=== PATIENT | female | born 1940 | race African-American/Black ===

== ENCOUNTER 2018-01-01 14:16 | Outpatient (CLI) | payer MEDICARE ==
[2017-12-31 09:12] LABS: Bilirubin Negative (Negative); Blood, Urine Negative (Negative); Clarity CLEAR (Clear); Glucose, Urine (Dipstick) Negative (Negative); Leukocyte Negative (Negative); Nitrite Negative (Negative); Protein, Urine (Dipstick) 30 mg/dL (Neg-Trace); Specific Gravity, Urine 1.009 (1.002-1.036); Urobilinogen 0.2 mg/dL (0.2-1.0)
[2017-12-31 09:13] LABS: Bacteria/HPF Rare-Few HPF (None Seen); Hyaline Casts/LPF 0-3 HYALINE CAST LPF (0-3 Hyaline); Pathc Cast-AUWi Flag 0.13 (0-2.49); RBC/HPF 0-3 HPF (0-3); Squamous Epithelial 0-3 HPF (0-3); WBC/HPF 0-3 HPF (0-3)
[2017-12-31 09:20] LABS: Anion Gap 14 mmol/L (10-20); BUN (Urea Nitrogen) 19 mg/dL (9.8-20.1); Calc. Creatinine Clearance 0 mL/min (70-130); Calcium 9.5 mg/dL (7.8-10.44); Carbon Dioxide 25 mmol/L (23-31); Chloride 104 mmol/L (98-107); Estimated GFR-MDRD 38; Glucose 163 mg/dL (83-110); Potassium 4.5 mmol/L (3.5-5.1); Sodium 138 mmol/L (136-145)
== END 2018-01-01 14:17 | disposition home or self-care (01) ==
LOC: BICULT 14:16
PROVIDERS: ATTEND Urology
DX: N18.9 Chronic kidney disease, unspecified (principal); N28.1 Cyst of kidney, acquired; R35.0 Frequency of micturition
CPT/HCPCS: 36415; 76770; 80048; 81001; 87086

== ENCOUNTER 2018-02-05 07:00 | Outpatient (CLI) | payer MEDICARE ==
--- NOTE | 2018-02-05 13:37 | NM ---
RADIONUCLIDE GASTRIC EMPTYING SCAN: HISTORY: Unspecified abdominal pain. Anorexia. RADIOPHARMACEUTICAL: Technetium 99m sulfur colloid 2.1 millicuries administered orally in scrambled eggs. FINDINGS: There is 69% emptying of the ingested gastric contents at 1 hour, 84% emptying at 2 hours, 87% emptyi ng at 3 hours, and 92% emptying at 4 hours. POS: [facility]
== END 2018-02-05 07:01 | disposition home or self-care (01) ==
LOC: NM 07:00
PROVIDERS: ATTEND Internal Medicine Gastroenterology
DX: R10.9 Unspecified abdominal pain (principal); K59.09 Other constipation; R63.0 Anorexia; R63.4 Abnormal weight loss; I10 Essential (primary) hypertension; E11.9 Type 2 diabetes mellitus without complications
CPT/HCPCS: 78264; A9541

== ENCOUNTER 2018-07-04 14:17 | Outpatient (CLI) | payer MEDICARE | END 2018-07-04 14:18 | disposition home or self-care (01) | LOC: BICMAMMO 14:17 | PROVIDERS: ATTEND Family Medicine | DX: Z12.31 Encounter for screening mammogram for malignant neoplasm of breast (principal) | CPT/HCPCS: 77063; 77067 ==

== ENCOUNTER 2018-09-26 08:24 | Outpatient (CLI) | payer MEDICARE ==
--- NOTE | 2018-09-26 10:06 | ULT ---
ULTRASOUND ABDOMEN: HISTORY: A 78-year-old female with abdominal pain. FINDINGS: The liver demonstrates homogeneous echotexture without focal mass or intrahepatic ductal dilatation. The spleen is normal. The patient is post cholecystectomy. The common duct measures 3 mm in diamet er. The pancreas is not well visualized. The visualized portions of the aorta and IVC are normal. No hydronephrosis is seen on either side. There is a 1.4 cm cyst in the right kidney. There is a 7 mm echogenic focus in the left kidney corresponding to a hemorrhagic cyst seen on the CT scan of 01/10. No free fluid is seen. IMPRESSION: Renal cysts. POS: [facility]
== END 2018-09-26 08:25 | disposition home or self-care (01) ==
LOC: BICULT 08:24
PROVIDERS: ATTEND Internal Medicine Gastroenterology
DX: R10.9 Unspecified abdominal pain (principal); E11.9 Type 2 diabetes mellitus without complications; N20.0 Calculus of kidney
CPT/HCPCS: 76700

== ENCOUNTER 2019-01-01 10:58 | Outpatient (CLI) | payer MEDICARE ==
--- NOTE | 2019-01-01 13:32 | ULT ---
RENAL ULTRASOUND: 01/01/2019 HISTORY: Chronic kidney disease. Renal cyst disease. COMPARISON: 01/01/2018 TECHNIQUE: Multiplanar lacy-scale sonographic imaging of the kidneys and urinary bladder is obtained. FINDINGS: The right kidney measures 9.1 x 4.4 x 4.4 cm, and the left kidney measures 8.7 x 4.6 x 4.4 cm. There is a small cyst in the upper pole of the right kidney, measuring 1.4 x 1.2 x 1.3 cm. No hydron ephrosis or solid renal mass is noted. Secondary to body habitus, detailed assessment of the left kidney is limited. No hydronephrosis or o bvious mass. The urinary bladder is grossly unremarkable. IMPRESSION: Cyst noted in the upper pole of the right kidney. Evaluation of the left kidney is limited secondary to body habitus and bowel gas. No hydronephrosis. POS: [facility]
== END 2019-01-01 10:59 | disposition home or self-care (01) ==
LOC: BICULT 10:58
PROVIDERS: ATTEND Urology
DX: N18.9 Chronic kidney disease, unspecified (principal); N28.1 Cyst of kidney, acquired
CPT/HCPCS: 76770

== ENCOUNTER 2019-01-19 19:22 | Emergency (ER) | payer MEDICARE ==
[2019-01-19 20:38] LABS: #Basophils 0.1 thou/uL (0.0-0.2); #Eosinphils 0.2 thou/uL (0.0-0.7); #Lymphocytes 2.4 thou/uL (1.20-3.40); #Monocytes 0.5 thou/uL (0.11-0.59); #Neutrophils 3.9 thou/uL (1.40-6.50); %Basophils 0.8 % (0.0-1.0); %Eosinophils 3.1 % (0.0-10.0); %Lymphocytes 33.7 % (21.0-51.0); %Monocytes 7.6 % (0.0-10.0); %Neutrophils 54.8 % (42.0-75.0); Hemoglobin 10.9 g/dL (12.0-16.0); Mean Corpuscular HGB CONC 32.1 g/dL (32.0-36.0); Mean Corpuscular Volume 87.2 fL (78.0-98.0); Mean Platelet Volume 6.9 fL (7.4-10.4); Platelet Count 277 thou/uL (130-400); RBC Distribution Width 12.3 % (11.5-14.5); White Blood Cell (WBC) Count 7.1 thou/uL (4.8-10.8)
[2019-01-19 21:06] LABS: ALT (SGPT) 13 U/L (8-55); AST (SGOT) 18 U/L (5-34); Albumin 3.6 g/dL (3.4-4.8); Alkaline Phosphatase 98 U/L (40-150); Anion Gap 13 mmol/L (10-20); BUN (Urea Nitrogen) 19 mg/dL (9.8-20.1); Bilirubin, Total 0.6 mg/dL (0.2-1.2); Calc. Creatinine Clearance 0 mL/min (70-130); Calcium 9.9 mg/dL (7.8-10.44); Carbon Dioxide 30 mmol/L (23-31); Chloride 100 mmol/L (98-107); Estimated GFR-MDRD 27; Globulin 3.8 g/dL (2.4-3.5); Glucose 138 mg/dL (83-110); Lipase 9 U/L (8-78); Potassium 4.1 mmol/L (3.5-5.1); Protein, Total 7.4 g/dL (6.0-8.3); Sodium 139 mmol/L (136-145)
[2019-01-19 21:07] LABS: Bilirubin Negative (Negative); Blood, Urine Negative (Negative); Clarity CLEAR (Clear); Glucose, Urine (Dipstick) Negative (Negative); Leukocyte Negative (Negative); Nitrite Negative (Negative); Protein, Urine (Dipstick) 100 mg/dL (Neg-Trace); Specific Gravity, Urine 1.006 (1.002-1.036); Urobilinogen 0.2 mg/dL (0.2-1.0)
[2019-01-19 21:08] LABS: Bacteria/HPF None Seen HPF (None Seen); Hyaline Casts/LPF 0-3 HYALINE CAST LPF (0-3 Hyaline); Pathc Cast-AUWi Flag 0.13 (0-2.49); Squamous Epithelial 0-3 HPF (0-3)
--- NOTE | 2019-01-19 21:17 | RAD ---
PORTABLE CHEST ONE VIEW: Date: 01-19-18 Time: 8:48 p.m. History: Abdominal pain FINDINGS: Comparison made with exam of 10-22-12. The heart size is enlarged. The aorta is tortuous. There is continued elevation of the right hemidiap hragm. The lungs are well expanded without focal areas of consolidation, pneumothoraces, grabiel pulmon channing edema, or pleural effusions. There are degenerative changes in the spine. IMPRESSION: No acute process. POS: [facility]
[2019-01-19] MEDS ORDERED: Metoclopramide HCl 10 MG/2 ML VIAL ONE (22:57)
--- NOTE | 2019-01-19 23:06 | CT ---
CT ABDOMEN AND PELVIS WITHOUT CONTRAST: History: Left sided abdominal pain. FINDINGS: Comparison made with exam of 01-10-17. Absence of oral and IV contrast limits the examination for evaluation of solid organs and bowel. There are changes of cholecystectomy and hysterectomy. No free air or free fluid is noted in the abdo men or pelvis. No calculus is seen in the kidneys, ureters, or urinary bladder. No hydroureteronephrosis on either s jose. Hyperdense lesions in the kidneys are redemonstrated. There are vascular calcifications without evidence of aneurysmal dilatation of the abdominal aorta. T here are degenerative changes of the spine. There is colonic diverticulosis. IMPRESSION: 1. No CT evidence of urinary tract calculi or obstruction. 2. Stable hyperdense renal lesions. 3. Colonic diverticulosis. POS: [facility]
[2019-01-19] MEDS ORDERED: Magnesium Citrate 300 ML BOT ONE (23:28)
== END 2019-01-19 23:36 | disposition home or self-care (01) ==
LOC: ERS 19:22
DX: K59.00 Constipation, unspecified (principal); E11.43 Type 2 diabetes mellitus with diabetic autonomic (poly)neuropathy; K31.84 Gastroparesis; I10 Essential (primary) hypertension; Z86.73 Personal history of transient ischemic attack (TIA), and cerebral infarction without residual deficits
CPT/HCPCS: 36415; 71045; 74176; 80053; 81003; 81015; 83690; 85025; 93005; 94760; 96361; 96374; J2765

== ENCOUNTER 2019-02-05 09:58 | Observation (INO) | payer MEDICARE ==
--- NOTE | 2019-02-05 11:10 | CT ---
CT Brain WO Con: 02/05/2019 10:27 AM CLINICAL HISTORY: Stroke alert; left lower extremity weakness, slurred speech and mental fog. IMAGING TECHNIQUE: Multiple CT images were obtained of the brain without IV contrast. COMPARISON: CT of the brain dated July 31, 2016 and MR the brain dated August 01, 2016. FINDINGS: Extra axial spaces: Normal in size and morphology for the patient's age. Hemorrhage: None. Ventricular system: Normal in size and morphology for the patient's age. Basal cisterns: Normal. Cerebral parenchyma: Stable moderate chronic small vessel white matter ischemic change. Midline shift: None. Cerebellum: Normal. Brainstem: Normal. OTHER: Calvarium: Normal. Vascular system: Normal. Visualized Paranasal sinuses: Clear. Visualized Orbits: Normal. Visualized upper cervical spine: Normal. Sella and skull base: Normal. IMPRESSION: 1. No acute intracranial abnormality. Findings called to Dr. Brewer at 11:05 AM on February 05, 2019. 2. Stable moderate chronic small vessel white matter ischemic change
[2019-02-05] MEDS ORDERED: Aspirin 325 MG TAB ONE (11:25)
[2019-02-05 11:30] LABS: #Eosinphils 0.2 thou/uL (0.0-0.7); #Lymphocytes 1.8 thou/uL (1.20-3.40); #Monocytes 0.3 thou/uL (0.11-0.59); #Neutrophils 6.1 thou/uL (1.40-6.50); %Basophils 0.4 % (0.0-1.0); %Eosinophils 1.8 % (0.0-10.0); %Lymphocytes 21.7 % (21.0-51.0); %Monocytes 3.5 % (0.0-10.0); %Neutrophils 72.6 % (42.0-75.0); Hemoglobin 14.5 g/dL (12.0-16.0); Mean Corpuscular HGB CONC 32.3 g/dL (32.0-36.0); Mean Corpuscular Hemoglobin 27.8 pg (27.0-31.0); Mean Corpuscular Volume 85.9 fL (78.0-98.0); Mean Platelet Volume 6.7 fL (7.4-10.4); Platelet Count 375 thou/uL (130-400); RBC Distribution Width 12.2 % (11.5-14.5); Red Blood Cell (RBC) Count 5.21 mill/uL (4.20-5.40); White Blood Cell (WBC) Count 8.3 thou/uL (4.8-10.8)
[2019-02-05 11:51] LABS: ALT (SGPT) 14 U/L (8-55); AST (SGOT) 22 U/L (5-34); Albumin 4.6 g/dL (3.4-4.8); Alkaline Phosphatase 119 U/L (40-150); Anion Gap 19 mmol/L (10-20); BUN (Urea Nitrogen) 18 mg/dL (9.8-20.1); Bilirubin, Total 0.7 mg/dL (0.2-1.2); CK (CPK) 65 U/L (29-168); Calc. Creatinine Clearance 0 mL/min (70-130); Calcium 11.4 mg/dL (7.8-10.44); Carbon Dioxide 23 mmol/L (23-31); Chloride 100 mmol/L (98-107); Estimated GFR-MDRD 27; Globulin 5.3 g/dL (2.4-3.5); Glucose 155 mg/dL (83-110); Potassium 4.3 mmol/L (3.5-5.1); Protein, Total 9.9 g/dL (6.0-8.3); Sodium 138 mmol/L (136-145)
[2019-02-05 12:21] LABS: Bilirubin Negative (Negative); Blood, Urine Small (Negative); Clarity CLOUDY (Clear); Glucose, Urine (Dipstick) Negative (Negative); Leukocyte Small (Negative); Nitrite Negative (Negative); Protein, Urine (Dipstick) 300 mg/dL (Neg-Trace); Specific Gravity, Urine 1.006 (1.002-1.036); Urobilinogen 0.2 mg/dL (0.2-1.0); pH, Urine 6.5 (5.0-9.0)
[2019-02-05 12:24] LABS: Bacteria/HPF None Seen HPF (None Seen); Hyaline Casts/LPF 0-3 HYALINE CAST LPF (0-3 Hyaline); Pathc Cast-AUWi Flag 0.13 (0-2.49); Squamous Epithelial 0-3 HPF (0-3); WBC/HPF 21-50 HPF (0-3)
[2019-02-05] MEDS ORDERED: Acetaminophen 500 MG TAB ONE (12:48)
[2019-02-05 13:56] VITALS: BMI 24.6
[2019-02-05] MEDS ORDERED: HYDROcodone/Acetaminophen 5/325 mg Tablet PO PRN ×2 (17:50)
[2019-02-05] MEDS ORDERED: Acetaminophen 325 MG TAB PO PRN (17:50)
[2019-02-05] MEDS ORDERED: Senokot S 8.6-50 MG TAB PO PRN (17:50)
[2019-02-05] MEDS ORDERED: Metoclopramide HCl 10 MG TAB PO PRN (17:53)
[2019-02-05] MEDS ORDERED: cloNIDine 0.2 MG TAB PO PRN (17:53)
[2019-02-05] MEDS ORDERED: Cyclobenzaprine 10 MG TAB PO PRN (17:53)
[2019-02-05] MEDS ORDERED: Dextrose 5% in Water 1,000 ML IV PRN (17:54)
[2019-02-05] MEDS ORDERED: Dextrose 50% Abboject 50 ML SYRINGE SLOW IVP PRN (17:54)
[2019-02-05] MEDS ORDERED: HumaLOG 300 UNITS/3 ML VIAL SC PRN (17:54)
[2019-02-05] MEDS ORDERED: Melatonin 3 MG TAB PO PRN (17:55)
[2019-02-05] MEDS: Famotidine 20 MG TAB PO SCH (20:43)
[2019-02-05] MEDS: Carvedilol 3.125 MG TAB PO SCH (20:43)
--- NOTE | 2019-02-06 01:55 | HP ---
PRIMARY CARE PHYSICIAN: Dr. Vigil. CHIEF COMPLAINT: Reports left leg weakness, some dysarthria. Reports that she has feeling of some slurred speech and mental fog since 1800 yesterday. Per niece, the patient does report long-standing history of some gastroparesis. Reports that is her current concern besides left-sided weakness, did have a stroke in 2016. Reports that she did have some left-sided weakness at that point, but it has improved and then got worse again yesterday. Reports that the slurred speech and dysarthria are new. Head CT was negative. The patient was subsequently admitted to the stroke unit for further management. PAST MEDICAL HISTORY: Cardiomegaly, diabetes type 2, hypertension, previous history of a CVA in 2016, left-sided weakness at that point, the patient reports it has been improved, also has fibromyalgia, cyst on her left kidney, gastroparesis. PAST SURGICAL HISTORY: Right knee, cholecystectomy, hysterectomy. Previous surgery for intestinal obstruction in 2000. PSYCHIATRIC HISTORY: None. SOCIAL HISTORY: The patient lives with her niece and nephew. Denies any alcohol or drug use. Denies any smoking history. KNOWN ALLERGIES: None. CURRENT MEDICATIONS: Per ER record, 1. Amlodipine 5 mg one p.o. once a day. 2. Aspirin 81 mg once a day. 3. Coreg 6.25 mg twice a day. 4. Catapres 0.1 mg q.12 hours p.r.n. 5. Omeprazole 40 mg once a day. 6. Reglan 5 mg three times a day. 7. Flexeril 10 mg t.i.d. 8. Carafate 1 g three times a day before meals. 9. Atorvastatin 10 mg 2 tabs at bedtime. REVIEW OF SYSTEMS: The patient reports epigastric abdominal pain and discomfort. Reports nausea. Reports focal weakness to left leg. Reports speech changes. All other systems are reviewed and negative unless mentioned in the HPI. PHYSICAL EXAMINATION: VITAL SIGNS: Blood pressure is 175/79, pulse is 86, respirations 18, pO2 sats 99, temp is 98.1. CONSTITUTIONAL: The patient appears nontoxic. She is alert and oriented to person, place, and time. HEENT: Head is atraumatic and normocephalic. Eyes; eyelids are normal to inspection. Pupils are equally round and reactive to light. ENT; mouth exam is normal. Mucous membranes are moist. NECK: Normal range of motion. Trachea is midline. RESPIRATORY/CHEST: Breath sounds are clear. Chest movement is symmetrical. CARDIOVASCULAR: Regular heart rate and rhythm. Heart sounds are normal. ABDOMEN: Nontender. She has some mild epigastric tenderness. Bowel sounds are heard. BACK: Normal range of motion. No CVA tenderness. EXTREMITIES: Upper extremities; decreased sensation to the left upper extremity. Strength is 4/5. Radial pulses are equal bilaterally. Lower extremities; normal inspection. Motor strength is 4/5 on the left and 5/5 on the right. Sensation is decreased on the left. Pedal pulses are equal bilaterally. NEUROLOGIC: The patient is oriented to person, place, and time. Focal motor deficits. Strength in the left upper and lower is 4/5 and on the right upper and lower is 5/5. Decreased sensation to the left upper and lower extremities. She is slow to form words. Decreased sensation to the left face. SKIN: Warm, dry, normal in color. PSYCH: The patient is oriented to person, place, and time. Normal affect. LABORATORY DATA: EKG in the emergency room shows normal sinus rhythm, beats per minute 96, ST segments T-waves are normal. [place] is normal. Does show some left atrial enlargement. PERTINENT LABORATORY DATA: White blood cell count is 8.3, hemoglobin is 14.5, hematocrit is 44.8, and platelet count is 375. Chemistry; sodium is 138, potassium is 4.3, chloride is 100, carbon dioxide is 23, gap is 19, BUN is 18, creatinine is 2.16, estimated GFR is 27, glucose is 155, calcium is 11.4. Liver enzymes are unremarkable. Troponin x1 is undetectable. Urine; positive for protein, blood, small amount of leukocyte esterase, and white blood cells. No bacteria is seen. We will culture. The patient did have a renal ultrasound in December of 2018, which showed a cyst in the upper pole of the right kidney. Evaluation of the left kidney is limited secondary to body habitus and bowel gas. No hydronephrosis. PLAN AND ASSESSMENT: 1. Left-sided weakness, dysarthria, is difficult to assess if left-sided weakness is new or residual from the left-sided residual deficits that she had after her stroke in 2016. However, we will order an MRI of the brain, carotid artery ultrasound, and echocardiogram especially due to her previous history of a cerebrovascular accident. 2. Gastroparesis. We will continue her home medication. Order some Zofran and some Reglan as needed. 3. Chronic kidney disease, appears stable. 4. Diabetes. For now, we will order Accu-Cheks a.c. and at bedtime, mild sliding scale as needed for coverage. 5. Hypertension. We will continue home medications. We will trend. 6. The patient expresses her wishes to be a DNR. Her son, Mu, was at the bedside and reports that he is the surrogate decision maker. 7. Sequential compression device will be added for deep venous thrombosis prophylaxis. Gastrointestinal prophylaxis will also be started. 8. Stroke team will be consulted. PT, OT, Speech, and Case Management. 9. Hospital course will be dependent on clinical findings. Job ID: [id number]
[2019-02-06 06:35] LABS: Albumin 3.1 g/dL (3.4-4.8)
[2019-02-06 06:37] LABS: Glucose 121 mg/dL (83-110)
[2019-02-06 06:38] LABS: Globulin 3.5 g/dL (2.4-3.5)
[2019-02-06 06:40] LABS: Alkaline Phosphatase 81 U/L (40-150)
[2019-02-06 06:42] LABS: BUN (Urea Nitrogen) 19 mg/dL (9.8-20.1)
[2019-02-06 06:43] LABS: ALT (SGPT) 9 U/L (8-55)
[2019-02-06 06:45] LABS: AST (SGOT) 19 U/L (5-34); Anion Gap 17 mmol/L (10-20); Bilirubin, Total 0.3 mg/dL (0.2-1.2); Calc. Creatinine Clearance 26 mL/min (70-130); Calcium 9.2 mg/dL (7.8-10.44); Carbon Dioxide 22 mmol/L (23-31); Cardiac Risk 12.9 (Less than 4.5); Chloride 104 mmol/L (98-107); Cholesterol 180 mg/dl (< 200 Desired); Estimated GFR-MDRD 31; HDL Cholesterol 14 mg/dL (>60 Neg Risk); LDL Cholesterol, Calculated 153 mg/dL; Potassium 4.5 mmol/L (3.5-5.1); Protein, Total 6.6 g/dL (6.0-8.3); Sodium 138 mmol/L (136-145); Triglycerides 64 mg/dL (Less than 150)
[2019-02-06] MEDS ORDERED: Sucralfate 1 GM TAB PO PRN (07:30)
[2019-02-06] MEDS ORDERED: LINACLOTIDE 290 MCG PO SCH (07:30)
--- NOTE | 2019-02-06 07:46 | ULT ---
BILATERAL CAROTID DUPLEX ULTRASOUND: HISTORY: Left-sided weakness, dysarthria TECHNIQUE: Grayscale, color-flow and spectral Doppler ultrasound imaging of the extracranial carotid artery syst ems was performed bilaterally. FINDINGS: Calcified atherosclerotic plaque is seen within the proximal internal carotid arteries bilaterally. There is no hemodynamically significant stenosis in the bilateral internal carotid arteries according to the peak systolic velocities and the ICA/CCA ratios. The peak systolic velocity in the right ICA measures 71.4 cm/s. The peak systolic velocity in the left ICA measures 90.3 cm/s. The right IC A/CCA ratio 0.84, and the left ICA/CCA ratio is 1.17. There is been no significant interval change when compared to prior study on 08/01/2016. Vertebral arteries: Antegrade flow is demonstrated in the vertebral arteries bilaterally. IMPRESSION: No evidence of hemodynamically significant stenosis in the bilateral internal carotid arteries.
[2019-02-06] MEDS: Famotidine 20 MG TAB PO SCH ×2 (08:24→22:21)
[2019-02-06] MEDS: Carvedilol 3.125 MG TAB PO SCH (08:24)
[2019-02-06] MEDS: Amlodipine 10 MG TAB PO SCH (08:24)
[2019-02-06] MEDS: Aspirin 81 mg Enteric Coated Tablet PO SCH (08:25)
[2019-02-06] MEDS: Atorvastatin Calcium 20 MG TAB PO SCH (08:25)
[2019-02-06 08:30] LABS: #Eosinphils 0.3 thou/uL (0.0-0.7); #Lymphocytes 2.6 thou/uL (1.20-3.40); #Monocytes 0.6 thou/uL (0.11-0.59); #Neutrophils 3.1 thou/uL (1.40-6.50); %Basophils 0.4 % (0.0-1.0); %Eosinophils 4.3 % (0.0-10.0); %Monocytes 8.7 % (0.0-10.0); %Neutrophils 47.6 % (42.0-75.0); Hemoglobin 11.4 g/dL (12.0-16.0); Mean Corpuscular HGB CONC 32.1 g/dL (32.0-36.0); Mean Corpuscular Hemoglobin 27.8 pg (27.0-31.0); Mean Corpuscular Volume 86.6 fL (78.0-98.0); Mean Platelet Volume 6.6 fL (7.4-10.4); Platelet Count 318 thou/uL (130-400); RBC Distribution Width 12.2 % (11.5-14.5); Red Blood Cell (RBC) Count 4.09 mill/uL (4.20-5.40); White Blood Cell (WBC) Count 6.6 thou/uL (4.8-10.8)
[2019-02-06] MEDS ORDERED: Lorazepam 2 MG/ML VIAL SLOW IVP SCH (11:30)
--- NOTE | 2019-02-06 19:12 | MRI ---
MRI OF THE BRAIN WITHOUT CONTRAST 02/06/19 HISTORY: Left sided weakness and dysarthria. FINDINGS: Correlation is made with the CT scan from previous day. Comparison is made with the MRI of brain of 1 . Changes of cortical atrophy, chronic small vessel ischemic disease and old lacunar infarction in the right thalamus are seen. A few small foci of hemosiderin deposition consistent with old hemorrhage ar e redemonstrated. No restricted diffusion is seen. No evidence of acute infarct, acute hemorrhage, midline shift or abnormal extra-axial fluid collectio ns are noted. The visualized paranasal sinuses and mastoid air cells are well aerated. IMPRESSION: No evidence of acute intracranial process. POS: [facility]
--- NOTE | 2019-02-06 19:22 | PRG ---
DATE OF SERVICE: 02/06/2019 SUBJECTIVE: The patient is a pleasant female with past medical history significant for CVA in 2016 with residual left-sided deficits, hypertension, hyperlipidemia, type 2 diabetes mellitus, and gastroparesis, who presented to the hospital with complaints of increased left-sided weakness where she felt she could not lift her left leg. She was also complaining at the time of her admission of some nausea secondary to her gastroparesis. The patient has no complaints to me at this time. She states her nausea is resolved, and she tolerated her full meal at lunch. Her leg weakness seems to be back to baseline as well. She denies any chest pain or shortness of breath. She denies any headache. No fever or chills. OBJECTIVE: VITAL SIGNS: Blood pressure 145/78, pulse is 82, oxygen saturation is 100% on room air, respirations 16, temperature is 98.3. GENERAL: The patient is an elderly female, resting comfortably in bed, in no acute distress. Nontoxic. HEENT: Head is atraumatic and normocephalic. Extraocular movements intact. Mucous membranes are moist. NECK: Supple. No lymphadenopathy. Trachea is midline. No carotid bruits. No JVD. RESPIRATORY: Regular respiratory rate and pattern. Lungs are clear to auscultation bilaterally. No crackles or rhonchi noted. CV: S1 and S2. Regular rate and rhythm. No appreciable murmurs, rubs, or gallops. ABDOMEN: Soft, nontender. Positive bowel sounds. EXTREMITIES: No edema. +2 DP pulses bilaterally. NEUROLOGIC: Cranial nerves 2 through 12 are grossly intact aside from some decreased sensation to the left side of her face. Motor strength in her legs seems to be equal at this time. Strength is 4/5 on the left upper extremity and 5/5 on the right. SKIN: Warm and dry. No discoloration or rashes. LABORATORY DATA: Hemoglobin 11.4, hematocrit 35.4. Sodium 138, potassium 4.5, chloride 104, BUN 19, creatinine 1.91, glucose 117, albumin 3.1. LDL 153, HDL 14, TSH 2.4. ASSESSMENT: 1. Increased left-sided weakness, which seems to be resolved back to her baseline today. 2. Gastroparesis, symptomatically improved today and tolerating full diet. 3. Stage 3 chronic kidney disease, creatinine 1.91 today, which is slightly improved. 4. Type 2 diabetes mellitus. 5. Hypertension, uncontrolled. PLAN: We will increase the patient's carvedilol to 6.25 mg b.i.d. Her echocardiogram showed normal left ventricular systolic function and no PFO or ASD noted. Her MRI is pending. She has worked with Physical Therapy, who has recommended Home Health or Outpatient Physical Therapy. Continue aspirin and statin and await results of MRI. If negative, expect discharge tomorrow morning with Home Physical Therapy. Care discussed with Dr. Saxena, who agrees with the above. Job ID: [id number]
[2019-02-07 05:43] LABS: #Basophils 0.1 thou/uL (0.0-0.2); #Eosinphils 0.2 thou/uL (0.0-0.7); #Lymphocytes 2.4 thou/uL (1.20-3.40); #Monocytes 0.5 thou/uL (0.11-0.59); #Neutrophils 3.1 thou/uL (1.40-6.50); %Basophils 0.9 % (0.0-1.0); %Eosinophils 3.7 % (0.0-10.0); %Lymphocytes 37.8 % (21.0-51.0); %Monocytes 8.5 % (0.0-10.0); %Neutrophils 49.1 % (42.0-75.0); Hemoglobin 10.2 g/dL (12.0-16.0); Mean Corpuscular HGB CONC 32.2 g/dL (32.0-36.0); Mean Corpuscular Hemoglobin 28.2 pg (27.0-31.0); Mean Corpuscular Volume 87.5 fL (78.0-98.0); Mean Platelet Volume 6.3 fL (7.4-10.4); Platelet Count 287 thou/uL (130-400); RBC Distribution Width 12.2 % (11.5-14.5); Red Blood Cell (RBC) Count 3.63 mill/uL (4.20-5.40); White Blood Cell (WBC) Count 6.3 thou/uL (4.8-10.8)
[2019-02-07 06:07] LABS: ALT (SGPT) 10 U/L (8-55); AST (SGOT) 14 U/L (5-34); Albumin 3.1 g/dL (3.4-4.8); Alkaline Phosphatase 72 U/L (40-150); Anion Gap 10 mmol/L (10-20); BUN (Urea Nitrogen) 19 mg/dL (9.8-20.1); Bilirubin, Total 0.4 mg/dL (0.2-1.2); Calc. Creatinine Clearance 24 mL/min (70-130); Calcium 9.4 mg/dL (7.8-10.44); Carbon Dioxide 27 mmol/L (23-31); Chloride 106 mmol/L (98-107); Estimated GFR-MDRD 29; Globulin 3.4 g/dL (2.4-3.5); Glucose 117 mg/dL (83-110); Potassium 4.2 mmol/L (3.5-5.1); Protein, Total 6.5 g/dL (6.0-8.3); Sodium 139 mmol/L (136-145)
[2019-02-07] MEDS ORDERED: Carvedilol 6.25 MG TAB PO SCH (08:00)
[2019-02-07 08:25] VITALS: BP 152/74; TEMP 98.2
[2019-02-07] MEDS: Aspirin 81 mg Enteric Coated Tablet PO SCH (08:54)
[2019-02-07] MEDS: Amlodipine 10 MG TAB PO SCH (08:54)
[2019-02-07] MEDS: Atorvastatin Calcium 20 MG TAB PO SCH (08:54)
[2019-02-07] MEDS ORDERED: Famotidine 20 MG TAB PO SCH (09:00)
--- NOTE | 2019-02-08 02:05 | DIS ---
DATE OF ADMISSION: 02/05/2019 DATE OF DISCHARGE: 02/07/2019 ALLERGIES: NO KNOWN DRUG ALLERGIES. CHIEF COMPLAINT: Left-sided weakness, slurred speech. FINAL DIAGNOSES: 1. Temporary increase in her baseline left-sided weakness, and slurred speech, likely secondary to transient ischemic attack, stroke workup has been negative. 2. History of cerebrovascular accident in 2016 with residual left-sided weakness. 3. Type 2 diabetes mellitus. 4. Gastroparesis, symptomatically improved throughout her stay, tolerating full diet without issue. 5. Hypertension. 6. Stage 3 chronic kidney disease, stable. PROCEDURE PERFORMED: None. LABORATORY RESULTS: White blood cell count 6.3, hemoglobin 10.2, hematocrit 31.8, platelets 287. Sodium 139, potassium 4.2, chloride 106, BUN 19, creatinine 2.04, glucose 117. AST, ALT, alkaline phosphatase all within normal limits. TSH 2.4. Cholesterol 180, LDL 153, HDL 14. Urinalysis negative for acute UTI. IMAGING: Brain CT performed on February 05, 2019. No acute intracranial abnormality. Stable moderate chronic small-vessel white matter ischemic change. Echocardiogram performed on February 06, 2019 showed no intracardiac masses noted, no ASD or PFO noted. Ejection fraction estimated at 60% to 65%, with normal left ventricular systolic function, 1/3 diastolic dysfunction, mild AV sclerosis, trace MR with mild MAC, mild TR. Brain MRI performed on February 06, 2019 showed no evidence of acute intracranial process. Carotid Doppler performed on February 06, 2019 showed no evidence of hemodynamically significant stenosis in the bilateral internal carotid arteries. CONSULTATIONS: None. 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 The patient was admitted to the hospital for CVA rule out. All patient's imaging, as outlined above was negative. She also had some surgery regarding her gastroparesis. Her Reglan was given on scheduled basis, and her symptoms have all resolved, she is tolerating a full diet without any issues at this point. She was evaluated by PT who released her to the walking program. All of her presenting symptoms have resolved, and she has had no recurrence. She is back to her baseline functioning status. She has no weakness today, no nausea or vomiting. No fever. No chest pain or shortness of breath. She has ambulated without issue. No fever or chills. Her blood pressure was elevated, and her carvedilol was increased from 3.125 mg b.i.d. to 6.25 mg b.i.d., and her blood pressure is in the 130 systolic this morning. PHYSICAL EXAMINATION: GENERAL: The patient is an elderly female, resting comfortably in bed, in no acute distress, nontoxic appearing. HEENT: Head is atraumatic and normocephalic. Extraocular movements intact. Mucous membranes are moist. NECK: Supple. No lymphadenopathy. Trachea is midline. No carotid bruits. No JVD. RESPIRATORY: Regular respiratory rate and pattern, lungs are clear to auscultation bilaterally. No crackles or rhonchi noted. CV: S1 and S2. Regular rate and rhythm. No appreciable murmurs, rubs, or gallops. ABDOMEN: Soft, nontender. Positive bowel sounds. EXTREMITIES: No edema. +2 DP pulses bilaterally. NEUROLOGIC: Cranial nerves 2 through 12 are grossly intact aside from some decreased sensation to the left side of the face, which is chronic for her. Motor strength in her legs seems to be equal at this time. SKIN: Warm and dry. No discoloration or rashes. CONDITION ON DISCHARGE: Stable. DISCHARGE MEDICATIONS: 1. Acetaminophen 500 mg p.o. p.r.n. 2. Amlodipine 10 mg p.o. daily. 3. Aspirin 81 mg daily. 4. Atorvastatin 20 mg p.o. at bedtime. 5. Clonidine 0.2 mg p.o. b.i.d. p.r.n. elevated blood pressure greater than 170. 6. Flexeril 10 mg tablet one tablet p.o. t.i.d. p.r.n. 7. Glipizide 2.5 mg p.o. b.i.d. 8. Ferractiv iron 27 mg formula one capsule daily. 9. Linzess 290 mcg capsule one capsule daily. 10. Reglan 5 mg tablet one tablet p.o. t.i.d. 11. Multivitamin one daily. 12. Omeprazole 40 mg capsule one capsule daily. 13. Carafate 1 g tablet 1 g p.o. t.i.d. p.r.n. 14. Carvedilol 6.25 mg p.o. b.i.d. DISCHARGE DISPOSITION: Home. PLAN: The patient will continue aspirin and statin and aggressive risk factor modification. I have advised her to follow up as an outpatient with Neurology as well as her PCP. The patient may benefit from outpatient physical therapy. Care has been discussed with Dr. Saxena, who agrees with the above. Job ID: [id number]
== END 2019-02-07 11:43 | disposition home or self-care (01) ==
LOC: ERS 09:58 → 2SE 12:22
PROVIDERS: ADMIT Internal Medicine; ATTEND Internal Medicine
DX: I69.354 Hemiplegia and hemiparesis following cerebral infarction affecting left non-dominant side (principal); R47.81 Slurred speech; E11.43 Type 2 diabetes mellitus with diabetic autonomic (poly)neuropathy; K31.84 Gastroparesis; M79.7 Fibromyalgia; I12.9 Hypertensive chronic kidney disease with stage 1 through stage 4 chronic kidney disease, or unspecified chronic kidney disease; E11.22 Type 2 diabetes mellitus with diabetic chronic kidney disease; N18.3 Chronic kidney disease, stage 3 (moderate); E11.21 Type 2 diabetes mellitus with diabetic nephropathy; Z79.82 Long term (current) use of aspirin; Z79.84 Long term (current) use of oral hypoglycemic drugs; Z79.899 Other long term (current) drug therapy
CPT/HCPCS: 70450; 70551; 80053 ×2; 80061; 82550; 82962 ×3; 84484; 85025 ×2; 87086; 93005; 93306; 93880; 96374; 97116; 97139 ×5; 97535; 99285; G0378 ×2; 36415; 36416; 81003; 81015; 84443; J2060; J8597

== ENCOUNTER 2019-02-12 17:56 | Observation (INO) | payer MEDICARE ==
[2019-02-12 18:43] LABS: #Basophils 0.1 thou/uL (0.0-0.2); #Eosinphils 0.2 thou/uL (0.0-0.7); #Lymphocytes 2.4 thou/uL (1.20-3.40); #Monocytes 0.5 thou/uL (0.11-0.59); #Neutrophils 4.1 thou/uL (1.40-6.50); %Basophils 1.1 % (0.0-1.0); %Eosinophils 2.3 % (0.0-10.0); %Lymphocytes 33.2 % (21.0-51.0); %Neutrophils 56.4 % (42.0-75.0); Hemoglobin 11.9 g/dL (12.0-16.0); Mean Corpuscular Hemoglobin 28.3 pg (27.0-31.0); Mean Corpuscular Volume 85.9 fL (78.0-98.0); Mean Platelet Volume 6.6 fL (7.4-10.4); Platelet Count 308 thou/uL (130-400); RBC Distribution Width 11.9 % (11.5-14.5); Red Blood Cell (RBC) Count 4.19 mill/uL (4.20-5.40); White Blood Cell (WBC) Count 7.2 thou/uL (4.8-10.8)
[2019-02-12 19:15] LABS: ALT (SGPT) 13 U/L (8-55); AST (SGOT) 20 U/L (5-34); Albumin 3.9 g/dL (3.4-4.8); Alkaline Phosphatase 106 U/L (40-150); Anion Gap 16 mmol/L (10-20); BUN (Urea Nitrogen) 20 mg/dL (9.8-20.1); Bilirubin, Total 0.5 mg/dL (0.2-1.2); Calc. Creatinine Clearance 0 mL/min (70-130); Calcium 9.8 mg/dL (7.8-10.44); Carbon Dioxide 22 mmol/L (23-31); Chloride 96 mmol/L (98-107); Estimated GFR-MDRD 22; Globulin 4.2 g/dL (2.4-3.5); Glucose 156 mg/dL (83-110); Potassium 4.2 mmol/L (3.5-5.1); Protein, Total 8.1 g/dL (6.0-8.3); Sodium 130 mmol/L (136-145)
[2019-02-12 20:25] LABS: Bilirubin Negative (Negative); Blood, Urine Small (Negative); Clarity TURBID (Clear); Glucose, Urine (Dipstick) Negative (Negative); Leukocyte Large (Negative); Nitrite Negative (Negative); Protein, Urine (Dipstick) 100 mg/dL (Neg-Trace); Specific Gravity, Urine 1.003 (1.002-1.036); Urobilinogen 0.2 mg/dL (0.2-1.0); pH, Urine 5.5 (5.0-9.0)
[2019-02-12 20:27] LABS: Bacteria/HPF 4+ HPF (None Seen); Hyaline Casts/LPF 7-10 HYALINE CAST LPF (0-3 Hyaline)
--- NOTE | 2019-02-12 21:17 | CT ---
CT abdomen noncontrast CT pelvis noncontrast: (Urolithiasis protocol) DATE: 02/12/2019 HISTORY: 76-year-old female with generalized abdominal pain, especially in the left upper quadrant. COMPARISON: 01/19/2019 and 01/10/2017 TECHNIQUE: IV injection of iodinated contrast media: None Oral contrast media: None FINDINGS: Other than for urolithiasis, the lack of IV and oral contrast limits the evaluation. Low density exophytic small mass protruding from right renal lower pole cortex is unchanged since 201 7. This is probably a cyst. A few small bilateral renal parenchymal moderately hyperdense lesions are unchanged, probably a small hemorrhagic cysts. No hydronephrosis. No renal, ureteral, or bladder calculus. Urinary bladder is mildly distended. It has normal, thin myles. No evidence of colonic diverticulitis. Multiple diverticula throughout the sigmoid colon. Cholecystectomy clips in gallbladder fossa. No small bowel dilation. No abdominal aortic aneurysm. No hepatosplenomegaly. No interval change in appearance of the pancreas. No adrenal nodule. No ascites or pneumoperitoneum. No consolidation or pleural effusion at lung bases. No major interval change. IMPRESSION: 1. No urolithiasis or obstructive uropathy. 2. Several findings, unchanged since prior studies.
[2019-02-12] MEDS ORDERED: Metoclopramide HCl 10 MG TAB ONE (21:44)
[2019-02-12] MEDS ORDERED: Fleet Enema 133 ML BOT FS SCH (22:00)
[2019-02-12] MEDS ORDERED: GoLYTELY 4,000 ml Bottle PO SCH (23:15)
[2019-02-12] MEDS ORDERED: Haloperidol Lactate 5 MG/ML VIAL ONE (23:44)
[2019-02-12] MEDS ORDERED: diphenhydrAMINE 50 MG CAP ONE (23:44)
[2019-02-13] MEDS ORDERED: Magnesium Citrate 300 ML BOT ONE (03:03)
[2019-02-13] MEDS ORDERED: Cefdinir 300 MG CAP PO SCH (05:00)
[2019-02-13] MEDS ORDERED: Heparin 5,000 UNITS/ML VIAL SC SCH (09:00)
[2019-02-13] MEDS ORDERED: Zolpidem Tartrate 5 MG TAB PO PRN (09:11)
[2019-02-13] MEDS ORDERED: Acetaminophen 325 MG TAB PO PRN (09:11)
[2019-02-13] MEDS ORDERED: Ondansetron PF 4 MG/2 ML Vial IVP PRN (09:11)
[2019-02-13] MEDS ORDERED: Senokot S 8.6-50 MG TAB PO PRN (09:11)
--- NOTE | 2019-02-13 11:03 | PDOC.EVN ---
Event Note - Event Note Event Note: H&P #[id number] NE #[id number]
--- NOTE | 2019-02-13 11:50 | HP ---
ADMITTING DIAGNOSES: Abdominal pain, constipation, and urinary tract infection. HISTORY OF PRESENT ILLNESS: This is a 78-year-old female, who presented to the hospital with abdominal pain for three days. She states that her last bowel movement was apparently five days ago. The patient overnight was seen in the ER and given lot of laxatives as well as stool softeners and anticonstipation medication. The patient states that at point of time of evaluation that she has had three bowel movements and feels significantly better. She has no more complaints at this point in time. She states that she would actually prefer to go home. The patient was seen and examined in the ER. No alleviating or aggravating factors. She states that this has never happened to her before. No family at bedside. All questions answered. REVIEW OF SYSTEMS: All systems reviewed, pertinent positive in HPI, otherwise negative. ALLERGIES: NO KNOWN DRUG ALLERGIES. MEDICATIONS: See MAR. PAST MEDICAL HISTORY: Positive for CKD stage 3, hypertension, hyperlipidemia, and coronary artery disease, as well as diabetes. FAMILY HISTORY: Positive for hypertension, hyperlipidemia, and diabetes. SOCIAL HISTORY: Nondrinker. Nonsmoker. PHYSICAL EXAMINATION: VITAL SIGNS: Blood pressure is 138/88, temperature of 98, O2 saturations 99% on room air, and heart rate of 88. GENERAL: The patient is sitting in bed, in no acute discomfort. HEENT: Pupils are equal, round, and reactive to light and accommodation. Extraocular muscles intact. Oral cavity moist and pink. NECK: Supple, mobile, and nontender. Thyroid appreciated. PULMONARY: Clear to auscultation bilaterally. No rales, rhonchi, or wheezing noted. CARDIOVASCULAR: Regular rate and rhythm. S1 and S2. No murmurs, rubs, or gallops appreciated. ABDOMEN: Rotund. Positive bowel sounds. Soft, nontender, and nondistended. EXTREMITIES: Trace pitting edema in bilateral lower extremities. 2+ circulatory peripheral pulses. NEUROLOGIC: Cranial nerves 2 through 12 intact. No loss of motor or sensory function. LABORATORY DATA: Reviewed. IMAGING STUDIES: Reviewed. ASSESSMENT: 1. Abdominal pain. 2. Constipation. 3. Asymptomatic bacteriuria. 4. Hypertension. 5. Hyperlipidemia. 6. Chronic kidney disease stage 3 going on to 4. 7. Metabolic bone disease. PLAN: At this point in time, we will admit the patient to Internal Medicine Services. We will provide oral antibiotics as well as medications for constipation. Can probably discharge the patient once the patient has bowel movements. Case and plan discussed with patient at length. She understood and agreed with this plan. Job ID: [id number]
--- NOTE | 2019-02-13 18:34 | DIS ---
DATE OF ADMISSION: 02/13/2019 DATE OF DISCHARGE: 02/13/2019 ADMITTING DIAGNOSES: Abdominal pain, constipation, asymptomatic bacteriuria, chronic kidney disease stage 3, metabolic bone disease, and hypertension. DISCHARGE DIAGNOSES: Abdominal pain resolved, constipation resolved, asymptomatic bacteriuria, hypertension, hyperlipidemia, and chronic kidney disease stage 3. HOSPITAL COURSE: This is a 78-year-old female, who was admitted to the hospital because of severe significant abdominal pain. The patient stated that her last bowel movement was a little slightly less than a week ago. The patient had a CT scan of the abdomen done, which showed no urolithiasis, no obstructive uropathy. A CT scan was compared to the study from prior results with no changes. No acute intraabdominal pathology was noted. The patient had three bowel movements during her stay in the ER, stated that she felt significantly better and wanted to go home. The patient was given medications, antibiotics, as well as stool softeners. Upon the time of discharge, advised to see her PCP within 1 week. The patient states that she had an appointment for Saturday, three days from now. At point in time of discharge, the patient was stable. Denied any nausea, vomiting, diarrhea, constipation, chest pain, fevers, chills, or shortness of breath. All symptoms had resolved and the patient wanted to go home. Case and plan discussed with patient at length. She understood and agreed to this plan. DISPOSITION: Home. FOLLOWUP: Follow up with PCP within 2 weeks. MEDICATIONS: See DEC. ACTIVITY: As tolerated with assistance as needed. DIET: Low-fat, low-calorie healthy diet. CONDITION: Stable. PROGNOSIS: Good. Once again, case and plan discussed the patient at length. She understood and agreed to this plan. Job ID: [id number]
--- NOTE | 2019-02-15 02:24 | EKG ---
Test Reason : Blood Pressure : / mmHG Vent. Rate : 069 BPM Atrial Rate : 069 BPM P-R Int : 154 ms QRS Dur : 078 ms QT Int : 392 ms P-R-T Axes : 048 003 041 degrees QTc Int : 420 ms Normal sinus rhythm Anteroseptal infarct , age undetermined Abnormal ECG Confirmed by KIRSTEN DELONG, EVELIA ([id number]), avid editor GIORGI CURTIS ([id number]) on 02/15/2019 2:23:53 AM Referred By: Confirmed By:EVELIA CURTIS MD
== END 2019-02-13 10:46 | disposition home or self-care (01) ==
LOC: ERS 17:56 → ERHOLD 02-13 04:20
PROVIDERS: ADMIT Internal Medicine; ATTEND Internal Medicine
DX: R10.9 Unspecified abdominal pain (principal); K59.00 Constipation, unspecified; N39.0 Urinary tract infection, site not specified; E11.22 Type 2 diabetes mellitus with diabetic chronic kidney disease; I12.9 Hypertensive chronic kidney disease with stage 1 through stage 4 chronic kidney disease, or unspecified chronic kidney disease; N18.3 Chronic kidney disease, stage 3 (moderate); I25.10 Atherosclerotic heart disease of native coronary artery without angina pectoris; R82.71 Bacteriuria; E78.5 Hyperlipidemia, unspecified; E88.9 Metabolic disorder, unspecified; Z79.899 Other long term (current) drug therapy
CPT/HCPCS: 74176; 80053; 83690; 84484; 85025; 93005; 96372; 99285; G0378; 36415; 81003; 81015; J1630; J8597; Q0153

== ENCOUNTER 2019-02-16 22:36 | Emergency (ER) | payer MEDICARE ==
[2019-02-16 23:08] LABS: #Eosinphils 0.1 thou/uL (0.0-0.7); #Lymphocytes 2.3 thou/uL (1.20-3.40); #Monocytes 0.8 thou/uL (0.11-0.59); #Neutrophils 4.9 thou/uL (1.40-6.50); %Basophils 0.2 % (0.0-1.0); %Eosinophils 1.4 % (0.0-10.0); %Lymphocytes 28.3 % (21.0-51.0); %Monocytes 10.1 % (0.0-10.0); %Neutrophils 60.1 % (42.0-75.0); Hemoglobin 10.8 g/dL (12.0-16.0); Mean Corpuscular HGB CONC 32.4 g/dL (32.0-36.0); Mean Corpuscular Volume 86.2 fL (78.0-98.0); Mean Platelet Volume 6.3 fL (7.4-10.4); Platelet Count 313 thou/uL (130-400); RBC Distribution Width 12.3 % (11.5-14.5); Red Blood Cell (RBC) Count 3.86 mill/uL (4.20-5.40); White Blood Cell (WBC) Count 8.2 thou/uL (4.8-10.8)
[2019-02-16 23:28] LABS: ALT (SGPT) 18 U/L (8-55); AST (SGOT) 33 U/L (5-34); Albumin 3.7 g/dL (3.4-4.8); Alkaline Phosphatase 89 U/L (40-150); Anion Gap 16 mmol/L (10-20); BUN (Urea Nitrogen) 19 mg/dL (9.8-20.1); Bilirubin, Total 0.4 mg/dL (0.2-1.2); Calc. Creatinine Clearance 0 mL/min (70-130); Calcium 9.8 mg/dL (7.8-10.44); Carbon Dioxide 23 mmol/L (23-31); Chloride 96 mmol/L (98-107); Estimated GFR-MDRD 19; Globulin 3.6 g/dL (2.4-3.5); Glucose 169 mg/dL (83-110); Protein, Total 7.3 g/dL (6.0-8.3); Sodium 131 mmol/L (136-145)
== END 2019-02-17 01:26 | disposition left against medical advice (07) ==
LOC: ERS 22:36
DX: Z53.21 Procedure and treatment not carried out due to patient leaving prior to being seen by health care provider (principal)
CPT/HCPCS: 36415; 80053; 85025

== ENCOUNTER 2019-02-18 08:27 | Emergency (ER) | payer MEDICARE ==
[2019-02-18] MEDS ORDERED: Ketorolac Tromethamine 30 MG/ML VIAL ONE (10:50)
[2019-02-18] MEDS ORDERED: Metoclopramide HCl 10 MG/2 ML VIAL ONE ×2 (10:50→13:20)
[2019-02-18 11:06] LABS: #Eosinphils 0.1 thou/uL (0.0-0.7); #Lymphocytes 1.7 thou/uL (1.20-3.40); #Monocytes 0.6 thou/uL (0.11-0.59); %Basophils 0.2 % (0.0-1.0); %Eosinophils 1.3 % (0.0-10.0); %Lymphocytes 27.1 % (21.0-51.0); %Monocytes 9.2 % (0.0-10.0); %Neutrophils 62.3 % (42.0-75.0); Hemoglobin 10.9 g/dL (12.0-16.0); Mean Corpuscular HGB CONC 32.6 g/dL (32.0-36.0); Mean Corpuscular Volume 85.9 fL (78.0-98.0); Mean Platelet Volume 6.6 fL (7.4-10.4); Platelet Count 293 thou/uL (130-400); RBC Distribution Width 12.2 % (11.5-14.5); White Blood Cell (WBC) Count 6.4 thou/uL (4.8-10.8)
--- NOTE | 2019-02-18 11:10 | RAD ---
XR Abdomen 1 View/KUB HISTORY: Abdominal pain left-sided x2 days COMPARISON: None. FINDINGS: The bowel gas pattern appears nonobstructive. Postop cholecystectomy changes are seen. No r enal calculi demonstrated. There are marked arthritic changes of the spine. IMPRESSION: No acute changes.
--- NOTE | 2019-02-18 11:12 | RAD ---
Exam: Chest one view HISTORY:Abdominal pain. Left upper quadrant pain, x2 Comparison: 01/19/2019 FINDINGS: Cardiac silhouette: Nonenlarged heart size. Atherosclerosis of the aorta. Pulmonary vessels: Normal Costophrenic angles: Clear LUNGS: No masses or consolidation. Changes are noted. Pneumothorax: None Osseous abnormalities: None IMPRESSION: 1. No acute cardiopulmonary process 2. Atherosclerosis.
[2019-02-18 11:33] LABS: Bilirubin Negative (Negative); Blood, Urine Negative (Negative); Clarity CLEAR (Clear); Glucose, Urine (Dipstick) Negative (Negative); Leukocyte Trace (Negative); Nitrite Negative (Negative); Protein, Urine (Dipstick) 100 mg/dL (Neg-Trace); Urobilinogen 0.2 mg/dL (0.2-1.0)
[2019-02-18 11:36] LABS: Bacteria/HPF None Seen HPF (None Seen); Hyaline Casts/LPF 0-3 HYALINE CAST LPF (0-3 Hyaline); Pathc Cast-AUWi Flag 0.27 (0-2.49); RBC/HPF 0-3 HPF (0-3); Squamous Epithelial 0-3 HPF (0-3); WBC/HPF 0-3 HPF (0-3)
[2019-02-18 11:40] LABS: ALT (SGPT) 30 U/L (8-55); AST (SGOT) 56 U/L (5-34); Albumin 3.5 g/dL (3.4-4.8); Alkaline Phosphatase 90 U/L (40-150); Anion Gap 14 mmol/L (10-20); BUN (Urea Nitrogen) 15 mg/dL (9.8-20.1); Bilirubin, Total 0.5 mg/dL (0.2-1.2); Calc. Creatinine Clearance 0 mL/min (70-130); Calcium 9.8 mg/dL (7.8-10.44); Carbon Dioxide 26 mmol/L (23-31); Chloride 99 mmol/L (98-107); Estimated GFR-MDRD 22; Globulin 3.4 g/dL (2.4-3.5); Glucose 170 mg/dL (83-110); Potassium 4.4 mmol/L (3.5-5.1); Protein, Total 6.9 g/dL (6.0-8.3); Sodium 135 mmol/L (136-145)
[2019-02-18 11:41] LABS: Specific Gravity, Urine 1.004 (1.002-1.036)
[2019-02-18] MEDS ORDERED: Haloperidol Lactate 5 MG/ML VIAL ONE (13:20)
== END 2019-02-18 14:22 | disposition home or self-care (01) ==
LOC: ERS 08:27
DX: E11.43 Type 2 diabetes mellitus with diabetic autonomic (poly)neuropathy (principal); K31.84 Gastroparesis; I10 Essential (primary) hypertension; Z79.899 Other long term (current) drug therapy; Z79.82 Long term (current) use of aspirin
CPT/HCPCS: 36415; 71045; 74018; 80053; 81003; 81015; 84484; 85025; 93005; 96365; 96366; 96367; 96375; J1630; J1885; J2765

== ENCOUNTER 2019-02-26 08:12 | Emergency (ER) | payer MEDICARE ==
[2019-02-26 08:50] LABS: #Basophils 0.1 thou/uL (0.0-0.2); #Eosinphils 0.1 thou/uL (0.0-0.7); #Monocytes 0.5 thou/uL (0.11-0.59); #Neutrophils 4.2 thou/uL (1.40-6.50); %Basophils 0.9 % (0.0-1.0); %Eosinophils 1.3 % (0.0-10.0); %Lymphocytes 28.7 % (21.0-51.0); %Monocytes 6.9 % (0.0-10.0); %Neutrophils 62.1 % (42.0-75.0); Hemoglobin 12.3 g/dL (12.0-16.0); Mean Corpuscular Hemoglobin 26.9 pg (27.0-31.0); Mean Corpuscular Volume 84.2 fL (78.0-98.0); Mean Platelet Volume 6.6 fL (7.4-10.4); Platelet Count 367 thou/uL (130-400); RBC Distribution Width 12.3 % (11.5-14.5); Red Blood Cell (RBC) Count 4.56 mill/uL (4.20-5.40); White Blood Cell (WBC) Count 6.8 thou/uL (4.8-10.8)
[2019-02-26 09:10] LABS: ALT (SGPT) 15 U/L (8-55); AST (SGOT) 22 U/L (5-34); Albumin 4.2 g/dL (3.4-4.8); Alkaline Phosphatase 92 U/L (40-150); Anion Gap 15 mmol/L (10-20); BUN (Urea Nitrogen) 18 mg/dL (9.8-20.1); Bilirubin, Total 0.7 mg/dL (0.2-1.2); Calc. Creatinine Clearance 0 mL/min (70-130); Calcium 10.5 mg/dL (7.8-10.44); Carbon Dioxide 27 mmol/L (23-31); Chloride 90 mmol/L (98-107); Estimated GFR-MDRD 35; Globulin 4.5 g/dL (2.4-3.5); Glucose 166 mg/dL (83-110); Potassium 3.8 mmol/L (3.5-5.1); Protein, Total 8.7 g/dL (6.0-8.3); Sodium 128 mmol/L (136-145)
[2019-02-26] MEDS ORDERED: Ketorolac Tromethamine 30 MG/ML VIAL ONE (09:59)
[2019-02-26 11:12] LABS: Bilirubin Negative (Negative); Blood, Urine Trace (Negative); Clarity CLEAR (Clear); Glucose, Urine (Dipstick) Negative (Negative); Leukocyte Negative (Negative); Nitrite Negative (Negative); Protein, Urine (Dipstick) 100 mg/dL (Neg-Trace); Urobilinogen 0.2 mg/dL (0.2-1.0); pH, Urine 7.5 (5.0-9.0)
--- NOTE | 2019-02-26 11:13 | CT ---
CT Abdomen Pelvis W Con History: [Lower abdominal pain.] Comparison: CT abdomen pelvis February 12, 2019 Findings: Lung bases are clear. No pericardial effusion. Prior cholecystectomy. Liver and spleen are unremarkable. Mild fatty atrophy of the pancreas. There is early contrast excretion within the collecting systems indicating this was performed as a de layed phase of contrast limiting solid organ evaluation. There is moderate stool burden throughout the colon. Moderate distention of the urinary bladder. No free intraperitoneal gas or fluid. There are hypodensities of both kidneys completely evaluated on this examination due to the delayed p hase of contrast aortoiliac contour is nonaneurysmal. Moderate degenerative changes lumbar spine. Celiac trunk and superior mesenteric arteries are patent. No retroperitoneal adenopathy. Impression: 1. Moderate stool retention and mild distention of the urinary bladder. No acute inflammatory process within the abdomen or pelvis. 2. Incompletely evaluated hypodensities of both kidneys due to the delayed phase of contrast. [facility] is recommended in 6 months.
[2019-02-26 11:15] LABS: Bacteria/HPF None Seen HPF (None Seen); Hyaline Casts/LPF 0-3 HYALINE CAST LPF (0-3 Hyaline); RBC/HPF None Seen HPF (0-3); Squamous Epithelial 0-3 HPF (0-3); WBC/HPF 0-3 HPF (0-3)
[2019-02-26 11:17] LABS: Specific Gravity, Urine 1.004 (1.002-1.036)
[2019-02-26] MEDS ORDERED: traMADol HCl 50 MG TAB ONE (11:50)
== END 2019-02-26 12:36 | disposition home or self-care (01) ==
LOC: ERS 08:12
DX: K59.00 Constipation, unspecified (principal); E11.9 Type 2 diabetes mellitus without complications; I10 Essential (primary) hypertension; Z79.899 Other long term (current) drug therapy; Z79.82 Long term (current) use of aspirin; Z79.891 Long term (current) use of opiate analgesic
CPT/HCPCS: 36415; 51701; 74177; 80053; 81003; 81015; 85025; 96374; A4353; J1885

== ENCOUNTER 2019-03-08 00:53 | Emergency (ER) | payer MEDICARE ==
[2019-03-08] MEDS ORDERED: Morphine 4 MG/ML VIAL ONE (02:06)
[2019-03-08 02:31] LABS: Bilirubin Negative (Negative); Blood, Urine Trace (Negative); Clarity CLEAR (Clear); Glucose, Urine (Dipstick) 100 mg/dL (Negative); Leukocyte Negative (Negative); Nitrite Negative (Negative); Protein, Urine (Dipstick) 100 mg/dL (Neg-Trace); Specific Gravity, Urine 1.004 (1.002-1.036); Urobilinogen 0.2 mg/dL (0.2-1.0)
[2019-03-08 02:31] LABS: #Basophils 0.1 thou/uL (0.0-0.2); #Eosinphils 0.1 thou/uL (0.0-0.7); #Monocytes 0.6 thou/uL (0.11-0.59); #Neutrophils 4.2 thou/uL (1.40-6.50); %Eosinophils 1.7 % (0.0-10.0); %Lymphocytes 28.9 % (21.0-51.0); %Monocytes 8.6 % (0.0-10.0); %Neutrophils 59.8 % (42.0-75.0); Hemoglobin 10.8 g/dL (12.0-16.0); Mean Corpuscular HGB CONC 32.5 g/dL (32.0-36.0); Mean Corpuscular Volume 86.1 fL (78.0-98.0); Mean Platelet Volume 6.7 fL (7.4-10.4); Platelet Count 308 thou/uL (130-400); RBC Distribution Width 12.3 % (11.5-14.5); Red Blood Cell (RBC) Count 3.87 mill/uL (4.20-5.40)
[2019-03-08 02:32] LABS: Pathc Cast-AUWi Flag 0.13 (0-2.49)
[2019-03-08 02:40] LABS: RBC/HPF 0-3 HPF (0-3)
[2019-03-08 02:41] LABS: Bacteria/HPF Rare-Few HPF (None Seen); Hyaline Casts/LPF NONE SEEN LPF (0-3 Hyaline); Squamous Epithelial 0-3 HPF (0-3); WBC/HPF 0-3 HPF (0-3)
[2019-03-08 02:55] LABS: ALT (SGPT) 24 U/L (8-55); AST (SGOT) 23 U/L (5-34); Albumin 3.7 g/dL (3.4-4.8); Alkaline Phosphatase 71 U/L (40-150); Anion Gap 16 mmol/L (10-20); BUN (Urea Nitrogen) 35 mg/dL (9.8-20.1); Bilirubin, Total 0.6 mg/dL (0.2-1.2); Calc. Creatinine Clearance 0 mL/min (70-130); Calcium 10.2 mg/dL (7.8-10.44); Carbon Dioxide 23 mmol/L (23-31); Chloride 96 mmol/L (98-107); Estimated GFR-MDRD 37; Globulin 3.7 g/dL (2.4-3.5); Glucose 167 mg/dL (83-110); Lipase 13 U/L (8-78); Potassium 3.6 mmol/L (3.5-5.1); Protein, Total 7.4 g/dL (6.0-8.3); Sodium 131 mmol/L (136-145)
[2019-03-08] MEDS ORDERED: Acetaminophen 325 MG TAB ONE (04:01)
--- NOTE | 2019-03-08 10:37 | CT ---
PRELIMINARY REPORT/[facility]/EMERGENCY AFTER HOURS PROCEDURE: EXAM: CT Abdomen and Pelvis Without Contrast EXAM DATE/TIME: 03/08/2019 2:38 AM CLINICAL HISTORY: 78 years old, female; Patient HX: 78 y/o F presents to ED C/O x 2-3 days of worsening bladder pain. A ssociated with chills. PT denies any pain with urination, feeling of inability to void completely, fe priscilla TECHNIQUE: Imaging protocol: Axial computed tomography images of the abdomen and pelvis without contrast. Ureña l reformatted images were created and reviewed. COMPARISON: No relevant prior studies available. FINDINGS: ABDOMEN: Liver: Normal. No mass. Gallbladder and bile ducts: Gallbladder not identified - surgical clips present in fossa. Pancreas: Normal. No ductal dilation. Spleen: Normal. No splenomegaly. Adrenals: Normal. No mass. Kidneys and ureters: Normal. No hydronephrosis. Stomach and bowel: No evidence of bowel obstruction. Mild - moderate amount retained stool material t hroughout nondilated colon. Appendix: No evidence of appendicitis. PELVIS: Bladder: No definite evidence of cystitis. Reproductive: Uterus is not identified. ABDOMEN and PELVIS: Intraperitoneal space: Normal. No free air. No significant fluid collection. Bones/joints: Chronic degenerative changes of the lumbar spine. Soft tissues: Unremarkable. Vasculature: Chronic atherosclerotic calcification of the vasculature. Lymph nodes: Normal. No enlarged lymph nodes. IMPRESSION: 1. No evidence of bowel obstruction. 2. No definite evidence of cystitis. Thank you for allowing us to participate in the care of your patient. Dictated and Authenticated by: Mindy Gale MD 03/08/2019 3:31 AM Central Time ([place] & [place]) FINAL REPORT EMERGENCY AFTER HOURS CT ABDOMEN AND PELVIS WITHOUT CONTRAST: FINDINGS/IMPRESSION: I agree with the findings and impression given in the preliminary report per [facility] physician. No evide nce of acute intraabdominal/pelvic abnormality.
== END 2019-03-08 06:01 | disposition home or self-care (01) ==
LOC: ERS 00:53
DX: K59.00 Constipation, unspecified (principal); I12.9 Hypertensive chronic kidney disease with stage 1 through stage 4 chronic kidney disease, or unspecified chronic kidney disease; N18.9 Chronic kidney disease, unspecified; E87.1 Hypo-osmolality and hyponatremia; E11.22 Type 2 diabetes mellitus with diabetic chronic kidney disease; Z79.82 Long term (current) use of aspirin; Z79.899 Other long term (current) drug therapy
CPT/HCPCS: 36415; 74176; 80053; 81003; 81015; 83690; 85025; 87086; 96374; J2270

== ENCOUNTER 2019-03-14 15:44 | Emergency (ER) | payer MEDICARE ==
[~2019-03-14 15:44] MED LIST: ISOVUE-370 76%-LOCM 1 ML ONE
[2019-03-14 16:43] LABS: #Basophils 0.1 thou/uL (0.0-0.2); #Eosinphils 0.1 thou/uL (0.0-0.7); #Lymphocytes 2.2 thou/uL (1.20-3.40); #Monocytes 0.4 thou/uL (0.11-0.59); #Neutrophils 4.1 thou/uL (1.40-6.50); %Basophils 1.2 % (0.0-1.0); %Lymphocytes 32.4 % (21.0-51.0); %Monocytes 6.1 % (0.0-10.0); %Neutrophils 59.3 % (42.0-75.0); Mean Corpuscular HGB CONC 33.3 g/dL (32.0-36.0); Mean Corpuscular Hemoglobin 28.6 pg (27.0-31.0); Mean Corpuscular Volume 85.9 fL (78.0-98.0); Mean Platelet Volume 6.9 fL (7.4-10.4); Platelet Count 330 thou/uL (130-400); RBC Distribution Width 12.2 % (11.5-14.5); Red Blood Cell (RBC) Count 3.49 mill/uL (4.20-5.40); White Blood Cell (WBC) Count 6.9 thou/uL (4.8-10.8)
[2019-03-14 17:03] LABS: ALT (SGPT) 15 U/L (8-55); AST (SGOT) 17 U/L (5-34); Albumin 3.7 g/dL (3.4-4.8); Alkaline Phosphatase 66 U/L (40-150); Anion Gap 12 mmol/L (10-20); BUN (Urea Nitrogen) 27 mg/dL (9.8-20.1); Bilirubin, Total 0.6 mg/dL (0.2-1.2); Calc. Creatinine Clearance 0 mL/min (70-130); Calcium 10.1 mg/dL (7.8-10.44); Carbon Dioxide 29 mmol/L (23-31); Chloride 97 mmol/L (98-107); Estimated GFR-MDRD 33; Globulin 3.5 g/dL (2.4-3.5); Glucose 173 mg/dL (83-110); Lipase 7 U/L (8-78); Potassium 3.8 mmol/L (3.5-5.1); Protein, Total 7.2 g/dL (6.0-8.3); Sodium 134 mmol/L (136-145)
[2019-03-14 17:04] LABS: Bilirubin Negative (Negative); Blood, Urine Negative (Negative); Clarity CLOUDY (Clear); Glucose, Urine (Dipstick) Negative (Negative); Leukocyte Trace (Negative); Nitrite Negative (Negative); Protein, Urine (Dipstick) 100 mg/dL (Neg-Trace); Specific Gravity, Urine 1.004 (1.002-1.036); Urobilinogen 0.2 mg/dL (0.2-1.0)
[2019-03-14 17:05] LABS: Other Microscopic Description Less than 2 mL rec'd; Pathc Cast-AUWi Flag 1.36 (0-2.49)
[2019-03-14 17:07] LABS: Bacteria/HPF None Seen HPF (None Seen); Hyaline Casts/LPF NONE SEEN LPF (0-3 Hyaline); RBC/HPF None Seen HPF (0-3); Squamous Epithelial 0-3 HPF (0-3); WBC/HPF None Seen HPF (0-3)
--- NOTE | 2019-03-14 17:30 | CT ---
CT Abdomen Pelvis W Con: 03/14/2019 4:08 PM CLINICAL INFORMATION: Abdominal pain and no bowel movement for 3 days COMPARISON: 02/26/2019 TECHNIQUE: Multiple contiguous axial images were obtained and a CT of the abdomen and pelvis with IV contrast. C oronal reformats were performed. FINDINGS: Lower Chest: within normal limits. Abdomen: Liver: within normal limits. Bile Ducts: Normal caliber. Gallbladder: Removed Pancreas: within normal limits. Spleen: within normal limits. Adrenals: within normal limits. Kidneys: Hypodensities in the right kidney measuring up to 2.0 cm in size likely represent cysts. Pelvis: Reproductive Organs: Status post hysterectomy. Ureters: within normal limits. Bladder: within normal limits. Peritoneum: No ascites or free air, no fluid collection. Bowel: Normal caliber. Mild stool retention in the right colon. No significant stool retention in the left colon or rectum. Mesentery and Retroperitoneum: No enlarged mesenteric or retroperitoneal lymph nodes. Vessels: Atherosclerotic calcifications in the aorta Abdominal Wall: within normal limits. Bones: Degenerative changes in the spine. IMPRESSION: 1. No evidence of acute intraabdominal\pelvic abnormality. 2. Right renal cysts
== END 2019-03-14 18:19 | disposition home or self-care (01) ==
LOC: ERS 15:44
DX: R10.9 Unspecified abdominal pain (principal); R10.819 Abdominal tenderness, unspecified site; E11.9 Type 2 diabetes mellitus without complications; I10 Essential (primary) hypertension
CPT/HCPCS: 36415; 51701; 74177; 80053; 81003; 81015; 83605; 83690; 85025; 96372; A4353; J0500; Q9966

== ENCOUNTER 2019-03-23 09:16 | Emergency (ER) | payer MEDICARE ==
[2019-03-23] MEDS ORDERED: diphenhydrAMINE 50 MG/ML VIAL ONE (10:03)
[2019-03-23] MEDS ORDERED: Metoclopramide HCl 10 MG/2 ML VIAL ONE (10:03)
--- NOTE | 2019-03-23 10:08 | RAD ---
RADIOGRAPH CHEST 1 VIEW: DATE: 03/23/2019 HISTORY: 78-year-old female status post syncope FINDINGS: The thoracic aorta is tortuous and ectatic. There is no evidence of airspace density, pulmonary edema , cardiomegaly, or pneumothorax. The lateral costophrenic angles are not effaced. IMPRESSION: 1) No acute cardiopulmonary findings. 2) ectasia of thoracic aorta.
[2019-03-23 10:20] LABS: ALT (SGPT) 15 U/L (8-55); AST (SGOT) 20 U/L (5-34); Albumin 3.8 g/dL (3.4-4.8); Alkaline Phosphatase 66 U/L (40-150); Anion Gap 17 mmol/L (10-20); BUN (Urea Nitrogen) 41 mg/dL (9.8-20.1); Bilirubin, Total 0.5 mg/dL (0.2-1.2); CK (CPK) 54 U/L (29-168); Calc. Creatinine Clearance 0 mL/min (70-130); Carbon Dioxide 23 mmol/L (23-31); Chloride 98 mmol/L (98-107); Estimated GFR-MDRD 31; Globulin 3.6 g/dL (2.4-3.5); Glucose 182 mg/dL (83-110); Protein, Total 7.4 g/dL (6.0-8.3); Sodium 134 mmol/L (136-145)
[2019-03-23 10:25] LABS: #Eosinphils 0.1 thou/uL (0.0-0.7); #Lymphocytes 1.8 thou/uL (1.20-3.40); #Monocytes 0.5 thou/uL (0.11-0.59); #Neutrophils 8.4 thou/uL (1.40-6.50); %Basophils 0.3 % (0.0-1.0); %Eosinophils 0.5 % (0.0-10.0); %Lymphocytes 16.5 % (21.0-51.0); %Monocytes 4.6 % (0.0-10.0); Hemoglobin 11.8 g/dL (12.0-16.0); Mean Corpuscular HGB CONC 33.1 g/dL (32.0-36.0); Mean Corpuscular Hemoglobin 28.7 pg (27.0-31.0); Mean Corpuscular Volume 86.6 fL (78.0-98.0); Mean Platelet Volume 7.2 fL (7.4-10.4); Platelet Count 284 thou/uL (130-400); RBC Distribution Width 12.5 % (11.5-14.5); Red Blood Cell (RBC) Count 4.12 mill/uL (4.20-5.40); White Blood Cell (WBC) Count 10.8 thou/uL (4.8-10.8)
== END 2019-03-23 11:30 | disposition home or self-care (01) ==
LOC: ERS 09:16
DX: T73.3XXA Exhaustion due to excessive exertion, initial encounter (principal); R55 Syncope and collapse; N18.9 Chronic kidney disease, unspecified
CPT/HCPCS: 36415; 71045; 80053; 82550; 84484; 85025; 93005; 96365; 96375; J1200; J2765

== ENCOUNTER 2019-03-28 03:27 | Emergency (ER) | payer MEDICARE ==
[2019-03-28] MEDS ORDERED: Ondansetron PF 4 MG/2 ML Vial ONE (04:15)
[2019-03-28] MEDS ORDERED: Morphine 4 MG/ML VIAL ONE (04:15)
[2019-03-28 04:18] LABS: #Basophils 0.1 thou/uL (0.0-0.2); #Eosinphils 0.1 thou/uL (0.0-0.7); #Lymphocytes 2.3 thou/uL (1.20-3.40); #Monocytes 0.5 thou/uL (0.11-0.59); #Neutrophils 4.3 thou/uL (1.40-6.50); %Basophils 1.5 % (0.0-1.0); %Eosinophils 1.6 % (0.0-10.0); %Lymphocytes 31.2 % (21.0-51.0); %Monocytes 7.1 % (0.0-10.0); %Neutrophils 58.6 % (42.0-75.0); Hemoglobin 11.3 g/dL (12.0-16.0); Mean Corpuscular HGB CONC 32.4 g/dL (32.0-36.0); Mean Corpuscular Hemoglobin 28.4 pg (27.0-31.0); Mean Corpuscular Volume 87.4 fL (78.0-98.0); Mean Platelet Volume 8.6 fL (7.4-10.4); Platelet Count 149 thou/uL (130-400); RBC Distribution Width 12.9 % (11.5-14.5); Red Blood Cell (RBC) Count 3.99 mill/uL (4.20-5.40); White Blood Cell (WBC) Count 7.4 thou/uL (4.8-10.8)
[2019-03-28 04:31] LABS: ALT (SGPT) 19 U/L (8-55); AST (SGOT) 19 U/L (5-34); Albumin 3.6 g/dL (3.4-4.8); Alkaline Phosphatase 68 U/L (40-150); Anion Gap 16 mmol/L (10-20); BUN (Urea Nitrogen) 40 mg/dL (9.8-20.1); Bilirubin, Total 0.5 mg/dL (0.2-1.2); Calc. Creatinine Clearance 0 mL/min (70-130); Calcium 10.3 mg/dL (7.8-10.44); Carbon Dioxide 24 mmol/L (23-31); Chloride 105 mmol/L (98-107); Estimated GFR-MDRD 33; Globulin 3.5 g/dL (2.4-3.5); Glucose 164 mg/dL (83-110); Magnesium 2.3 mg/dL (1.6-2.6); Potassium 4.2 mmol/L (3.5-5.1); Protein, Total 7.1 g/dL (6.0-8.3); Sodium 141 mmol/L (136-145)
[2019-03-28] MEDS ORDERED: Metoclopramide HCl 10 MG/2 ML VIAL ONE (05:49)
[2019-03-28] MEDS ORDERED: diphenhydrAMINE 50 MG/ML VIAL ONE (05:49)
--- NOTE | 2019-03-28 07:45 | CT ---
ABDOMEN AND PELVIS CT WITH CONTRAST; COMPARISON: 03/14/2019. INDICATION: Abdominal pain, constipation. FINDINGS: Minimal volume loss is seen at the lung bases. There is moderate distention of the gastric lumen. T he gastric wall is thickened for the degree of distention. There is a large volume of retained fecal material occupying the right hemicolon. The contrast-opacified portions of the small bowel are nond ilated. Prior cholecystectomy. Solid abdominal organs are grossly stable. Diffuse vascular disease is present. No pneumoperitoneum. There are scattered colonic diverticula. Osseous structures are similar in appearance. There is prominence distention of the unopacified urinary bladder. IMPRESSION: 1. Wall thickening of the moderately distended stomach. Correlate clinically to exclude evidence of underlying gastritis. 2. Constipation and colonic diverticulosis. 3. Prominent distention of the urinary bladder. Correlate clinically. POS: CHARITY
--- NOTE | 2019-03-28 08:25 | RAD ---
Exam: Single view of the chest and 2 views of the abdomen HISTORY: Left upper quadrant abdominal pain COMPARISON: 04/11/2003 FINDINGS: 2 views of the abdomen and a single view the chest shows a nonspecific, nonobstructive robina l gas pattern. Air is seen to the level of the rectum. No free air or air-fluid levels are seen and upright examination. Cholecystectomy clips are seen. Degenerative changes are seen in the spine. The cardiomediastinal silhouette is normal in size. There is no evidence of consolidation, mass, or p leural effusion. IMPRESSION: Nonobstructive bowel gas pattern
== END 2019-03-28 08:18 | disposition home or self-care (01) ==
LOC: ERS 03:27
DX: K59.00 Constipation, unspecified (principal); E11.43 Type 2 diabetes mellitus with diabetic autonomic (poly)neuropathy; K31.84 Gastroparesis; I10 Essential (primary) hypertension
CPT/HCPCS: 36415; 74022; 74177; 80053; 83735; 85025; 96361; 96365; 96375; J1200; J2270; J2405; J2765

== ENCOUNTER 2019-04-27 08:59 | Emergency (ER) | payer MEDICARE ==
[2019-04-27 10:05] LABS: #Lymphocytes 1.8 thou/uL (1.20-3.40); #Monocytes 0.4 thou/uL (0.11-0.59); #Neutrophils 4.3 thou/uL (1.40-6.50); %Basophils 0.4 % (0.0-1.0); %Eosinophils 0.8 % (0.0-10.0); %Lymphocytes 27.4 % (21.0-51.0); %Monocytes 5.6 % (0.0-10.0); %Neutrophils 65.8 % (42.0-75.0); Hemoglobin 9.5 g/dL (12.0-16.0); Mean Corpuscular HGB CONC 31.8 g/dL (32.0-36.0); Mean Corpuscular Hemoglobin 28.2 pg (27.0-31.0); Mean Corpuscular Volume 88.7 fL (78.0-98.0); Mean Platelet Volume 6.7 fL (7.4-10.4); Platelet Count 285 thou/uL (130-400); Red Blood Cell (RBC) Count 3.37 mill/uL (4.20-5.40); White Blood Cell (WBC) Count 6.5 thou/uL (4.8-10.8)
[2019-04-27 10:31] LABS: ALT (SGPT) 15 U/L (8-55); AST (SGOT) 14 U/L (5-34); Albumin 3.4 g/dL (3.4-4.8); Alkaline Phosphatase 67 U/L (40-150); Anion Gap 12 mmol/L (10-20); BUN (Urea Nitrogen) 39 mg/dL (9.8-20.1); Bilirubin, Total 0.4 mg/dL (0.2-1.2); Calc. Creatinine Clearance 0 mL/min (70-130); Calcium 9.9 mg/dL (7.8-10.44); Carbon Dioxide 27 mmol/L (23-31); Chloride 102 mmol/L (98-107); Estimated GFR-MDRD 29; Glucose 171 mg/dL (83-110); Potassium 5.3 mmol/L (3.5-5.1); Protein, Total 6.4 g/dL (6.0-8.3); Sodium 136 mmol/L (136-145)
--- NOTE | 2019-04-27 10:37 | RAD ---
PORTABLE CHEST 1 VIEW: Date: 04/27/19 Time: 0948 hours HISTORY: Weakness, shortness of breath. FINDINGS: Comparison made with exam of 03/23/19. The heart size is normal. The aorta is tortuous. The lungs are expanded without lobar consolidation, pneumothoraces, or pleural effusions. IMPRESSION: No acute process. POS: OFF
--- NOTE | 2019-04-27 11:22 | CT ---
BRAIN CT WITHOUT IV CONTRAST: HISTORY: Weakness, shortness of breath, abdominal pain. COMPARISON: 02/05/2019. FINDINGS: Bilateral atrophy and chronic white matter ischemic changes. Minimal right sphenoid sinus mucosal di sease. The mastoids are clear. IMPRESSION: No mass or bleed or other significant acute intracranial process. Atrophy and chronic white matter i schemic changes, stable. POS: TPC
[2019-04-27] MEDS ORDERED: Acetaminophen 500 MG TAB ONE ×2 (12:17)
[2019-04-27 13:52] LABS: Bacteria/HPF None Seen HPF (None Seen); Bilirubin Negative (Negative); Blood, Urine Negative (Negative); Clarity Clear (Clear); Glucose, Urine (Dipstick) Normal (Negative); Leukocyte 75 Leu/uL (Negative); Nitrite Negative (Negative); Protein, Urine (Dipstick) 100 mg/dL (Neg-Trace); RBC/HPF 0-3 HPF (0-3); Urobilinogen Normal mg/dL (Less than 2)
== END 2019-04-27 14:33 | disposition home or self-care (01) ==
LOC: ERS 08:59
DX: E11.65 Type 2 diabetes mellitus with hyperglycemia (principal)
CPT/HCPCS: 36415; 51701; 70450; 71045; 80053; 81003; 81015; 84484; 85025; 96360; 96361; A4353

== ENCOUNTER 2019-06-18 14:11 | Observation (INO) | payer MEDICARE ==
[2019-06-18 14:59] LABS: #Eosinphils 0.2 thou/uL (0.0-0.7); #Monocytes 0.4 thou/uL (0.11-0.59); #Neutrophils 4.8 thou/uL (1.40-6.50); %Basophils 0.5 % (0.0-1.0); %Eosinophils 2.8 % (0.0-10.0); %Lymphocytes 27.3 % (21.0-51.0); %Monocytes 5.9 % (0.0-10.0); %Neutrophils 63.5 % (42.0-75.0); Hemoglobin 11.7 g/dL (12.0-16.0); Mean Corpuscular HGB CONC 33.1 g/dL (32.0-36.0); Mean Corpuscular Hemoglobin 29.5 pg (27.0-31.0); Mean Platelet Volume 6.9 fL (7.4-10.4); Platelet Count 312 thou/uL (130-400); RBC Distribution Width 12.6 % (11.5-14.5); Red Blood Cell (RBC) Count 3.98 mill/uL (4.20-5.40); White Blood Cell (WBC) Count 7.5 thou/uL (4.8-10.8)
[2019-06-18 15:19] LABS: ALT (SGPT) 16 U/L (8-55); AST (SGOT) 16 U/L (5-34); Albumin 4.3 g/dL (3.4-4.8); Alkaline Phosphatase 90 U/L (40-150); Anion Gap 18 mmol/L (10-20); BUN (Urea Nitrogen) 72 mg/dL (9.8-20.1); Bilirubin, Total 0.3 mg/dL (0.2-1.2); Calc. Creatinine Clearance 0 mL/min (70-130); Calcium 10.2 mg/dL (7.8-10.44); Carbon Dioxide 19 mmol/L (23-31); Chloride 100 mmol/L (98-107); Estimated GFR-MDRD 25; Globulin 4.3 g/dL (2.4-3.5); Glucose 111 mg/dL (83-110); Lipase 17 U/L (8-78); Potassium 5.6 mmol/L (3.5-5.1); Protein, Total 8.6 g/dL (6.0-8.3); Sodium 131 mmol/L (136-145)
[2019-06-18 16:01] LABS: Bacteria/HPF 4+ HPF (None Seen); Bilirubin Negative (Negative); Blood, Urine Negative (Negative); Clarity Turbid (Clear); Glucose, Urine (Dipstick) Normal (Negative); Leukocyte 500 Leu/uL (Negative); Nitrite Negative (Negative); Protein, Urine (Dipstick) 70 mg/dL (Neg-Trace); RBC/HPF 0-3 HPF (0-3); Squamous Epithelial 0-3 HPF (0-3); Urobilinogen Normal mg/dL (Less than 2); WBC/HPF Greater than 50 HPF (0-3)
[2019-06-18] MEDS ORDERED: cefTRIAXone\\ROCEPHIN 2 GM VIAL ONE (16:47)
--- NOTE | 2019-06-18 18:10 | CT ---
CT head noncontrast HISTORY: Altered mental status. Left-sided weakness. COMPARISON: 04/27/2019. FINDINGS: There is no evidence of acute intracranial hemorrhage or infarct. Diffuse cortical atrophy and chronic ischemic small vessel disease are unchanged in appearance. Physiologic calcification at the basal ganglia. There is no mass effect or shift of midline structures. 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 IMPRESSION: Chronic-type findings are stable. No acute intracranial abnormalities are demonstrated.
[2019-06-18] MEDS ORDERED: Acetaminophen 500 MG TAB ONE (18:47)
[2019-06-18] MEDS ORDERED: Aspirin Chewable 81 MG TAB ONE (18:47)
--- NOTE | 2019-06-18 19:26 | PDOC.FPRHP ---
- History of Present Illness Chief Complaint: LLE weakness and generalized fatigue History of Present Illness: 78 y/o F with PMHx of DM, HTN, CKD and gastroparesis presents to the ED with generalized fatigue and LLE weakness/paresthesia. She states that earlier today she was being seen by GI doctor when she slumped down in her chair, leading GI doc to send her to the ED. She c/o increased abd pain over the past X1 week, with constipation. Denies n/v/ d. Feels"dehydrated," and does not drink very much water. Only 4 water bottles daily. Pt was found to have a UTI in the ED. Started on Rocephin. While in ED pt developed LLE weakness and numbness. She states it is still slightly present when I evaluated her. Denies any slurred speech or syncopal event. States she has been slightly light headed. CT head negative for acute hemorrhage. Trops negative. Lipase 17. WBC 7.5 UA protein +, WBC >50, Leukocyte 500 Na 131, K 5.6, Cr 2.26, BUN 72. - Allergies/Adverse Reactions Allergies Allergy/AdvReac Type Severity Reaction Status Date / Time No Known Drug Allergies Allergy Verified 07/31/16 20:30 - Home Medications Medication Instructions Recorded Confirmed Type Amlodipine [Norvasc] 10 mg PO DAILY 02/05/19 06/19/19 History Aspirin [Anita Chewable Aspirin] 81 mg PO DAILY 02/05/19 06/19/19 History Atorvastatin Calcium [Lipitor] 20 mg PO HS 02/05/19 06/19/19 History Cyclobenzaprine [Flexeril] 10 mg PO HS 02/05/19 06/19/19 History Linaclotide [Linzess] 290 mcg PO DAILY 02/05/19 06/19/19 History Metoclopramide HCl [Reglan] 5 mg PO QID 02/05/19 06/19/19 History Omeprazole 40 mg PO DAILY 02/05/19 06/19/19 History Sucralfate [Carafate] 1 gm PO DAILY 02/05/19 06/19/19 History glipiZIDE [glipiZIDE XL] 2.5 mg PO DAILY 02/05/19 06/19/19 History Carvedilol [Coreg] 3.125 mg PO 06/19/19 06/19/19 History Carvedilol [Coreg] 6.25 mg PO DAILY 06/19/19 06/19/19 History Docusate [Colace] 100 mg PO DAILY PRN 06/19/19 06/19/19 History - History PMHx: DM II non-insulin dependent, HTN, Gastroparesis, CKD stage 4, SBO PSHx: Hysterectomy, cholecystectomy, abdominal surgery for SBO, R-LE hardware. FHx: father: prostates [place], sister: CHF Social: Denies drug, etoh, or smoking. Lives at [facility] for X2 months now. Son states pt's memory has been gradually declining over past year. - Review of Systems General: reports: fatigue. denies: fever/chills Eyes: denies: vision changes ENT: denies: nasal congestion, rhinorrhea Respiratory: denies: cough, congestion, shortness of breath Cardiovascular: denies: chest pain, palpitation, edema Gastrointestinal: reports: constipation, abdominal pain. denies: nausea, vomiting, diarrhea Genitourinary: denies: incontinence, polyuria Skin: denies: rashes, lesions Musculoskeletal: denies: pain Neurological: reports: numbness (LLE), weakness (LLE). denies: syncope, seizure - Vital signs BP: 176/86 HR: 110 RR: 14 Tmax: 98.6 Pox: 100%% on RA Wt: 65.8 kg - Physical Exam Constitutional: NAD, awake, alert and oriented (oriented to month and year, not date. Oriented to person, place, and situation.) HEENT: normocephalic and atraumatic, PERRLA, EOMI, conjunctiva clear, no scleral icterus, grossly normal vision, grossly normal hearing, MMM, oropharynx clear Neck: supple, FROM, trachea midline, no LAD, no JVD Chest: no-tender to palpation, no lesions Heart: RRR, normal S1/S2, no murmurs/rubs/gallops, pulses present, no edema Lungs: CTAB, no respiratory distress, good air movement, no rales/rhonchi, no wheezing, no retractions Abdomen: soft, non-tender, bowel sounds present, no masses/distention, no hernias Musculoskeletal: normal structure, normal tone -Musculoskeletal: strength 4/5 in LLE Strength 5/5 in all other major muscle groups. Neurological: CN II-XII intact -Neurological: Decreased sensation in LLE. [id number] intact and [id number]-ar-[id number] intact bilaterally. rapid hand movements intact. Skin: no rash/lesions, no jaundice -Skin: increased skin tenting Heme/Lymphatic: no unusual bruising or bleeding, no purpura, no petechia Psychiatric: normal mood and affect, good judgment and insight, other ( decreased memory) FMR H&P: Results - Labs Result Diagrams: 06/18/19 14:50 06/18/19 14:50 Lab results: WBC 7.5 thou/uL (4.8-10.8) 06/18/19 14:50 Hgb 11.7 g/dL (12.0-16.0) L 06/18/19 14:50 Hct 35.4 % (36.0-47.0) L 06/18/19 14:50 MCV 89.0 fL (78.0-98.0) 06/18/19 14:50 Plt Count 312 thou/uL (130-400) 06/18/19 14:50 Neutrophils % 63.5 % (42.0-75.0) 06/18/19 14:50 Sodium 131 mmol/L (136-145) L 06/18/19 14:50 Potassium 5.6 mmol/L (3.5-5.1) H 06/18/19 14:50 Chloride 100 mmol/L (98-107) 06/18/19 14:50 Carbon Dioxide 19 mmol/L (23-31) L 06/18/19 14:50 BUN 72 mg/dL (9.8-20.1) H 06/18/19 14:50 Creatinine 2.26 mg/dL (0.6-1.1) H 06/18/19 14:50 Glucose 111 mg/dL (83-110) H 06/18/19 14:50 Calcium 10.2 mg/dL (7.8-10.44) 06/18/19 14:50 Total Bilirubin 0.3 mg/dL (0.2-1.2) 06/18/19 14:50 AST 16 U/L (5-34) 06/18/19 14:50 ALT 16 U/L (8-55) 06/18/19 14:50 Alkaline Phosphatase 90 U/L (40-150) 06/18/19 14:50 Serum Total Protein 8.6 g/dL (6.0-8.3) H 06/18/19 14:50 Albumin 4.3 g/dL (3.4-4.8) 06/18/19 14:50 Lipase 17 U/L (8-78) 06/18/19 14:50 Urine Ketones Negative mg/dL (Negative) 06/18/19 15:48 Urine Blood Negative (Negative) 06/18/19 15:48 Urine Nitrite Negative (Negative) 06/18/19 15:48 Ur Leukocyte Esterase 500 Hayes/uL (Negative) A 06/18/19 15:48 Urine RBC 0-3 HPF (0-3) 06/18/19 15:48 Urine WBC Greater than 50 HPF (0-3) A 06/18/19 15:48 Ur Squamous Epith Cells 0-3 HPF (0-3) 06/18/19 15:48 Urine Bacteria 4+ HPF (None Seen) A 06/18/19 15:48 - Radiology Interpretation CT scan - head Status: report reviewed by me (no acute hemorrhage) FMR H&P: A/P - Problem List (1) TIA (transient ischemic attack) Current Visit: Yes Status: Acute Code(s): G45.9 - TRANSIENT CEREBRAL ISCHEMIC ATTACK, UNSPECIFIED (2) UTI (urinary tract infection) Current Visit: Yes Status: Acute (3) CKD (chronic kidney disease) stage 4, GFR 15-29 ml/min Current Visit: Yes Status: Acute Code(s): N18.4 - CHRONIC KIDNEY DISEASE, STAGE 4 (SEVERE) (4) Dehydration Current Visit: Yes Status: Acute Code(s): E86.0 - DEHYDRATION (5) Gastroparesis Current Visit: Yes Status: Chronic Code(s): K31.84 - GASTROPARESIS (6) DM II (diabetes mellitus, type II), controlled Current Visit: No Status: Chronic Code(s): E11.9 - TYPE 2 DIABETES MELLITUS WITHOUT COMPLICATIONS Qualifiers: Diabetes mellitus terminal computer operator insulin use: with usp use Diabetes mellitus complication status: with kidney complications Diabetes mellitus complication detail: with chronic kidney disease Chronic kidney disease stage : stage 3 (moderate) Qualified Code(s): E11.22 - Type 2 diabetes mellitus with diabetic chronic kidney disease; N18.3 - Chronic kidney disease, stage 3 ( moderate); Z79.4 - jail (current) use of insulin (7) HTN (hypertension) Current Visit: No Status: Chronic Code(s): I10 - ESSENTIAL (PRIMARY) HYPERTENSION Qualifiers: Hypertension type: essential hypertension Qualified Code(s): I10 - Essential (primary) hypertension (8) Hyperkalemia Current Visit: Yes Status: Acute Code(s): E87.5 - HYPERKALEMIA (9) Hyponatremia Current Visit: Yes Status: Acute Code(s): E87.1 - HYPO-OSMOLALITY AND HYPONATREMIA - Plan 78 y/o F admitted to Observation Stroke [place] for TIA and Acute UTI. 1. TIA - CT head negative for acute hemorrhage - MRI in the AM. - LLE weakness and paresthesia - Permissive HTN with allowed sys BP up to 220 2. UTI - Rocephin 1g Q24H - IVF hydration - urine ccx 3. Dehydration - Continue gentle IVF hydration 4. Hyperkalemia - Recheck in AM - Most likely secondary to dehydration 5. Hyponatremia - Most likely hypovolemic hyponatremia secondary to dehydration - recheck in the AM 6. Hx of Gastroparesis - Most likely cause of pt's abdominal pain 7. Hx of CKD stage 4 - GFR 25 - Cr 2.26 8. Hx of HTN - old home BP medications - Permissive HTN with allowed sys BP up to 220 Diet: renal low protein diet DVT Ppx: SCD's Code Status: DNI Disposition/LOS: Admitted to inpatient obs for anticipated less than 2 midnights stable FMR H&P: Upper Level - Pertinent history 78 yo with extensive PMH presents for evaluation of left sided weakness. Patient was seen earlier today at GI office and was sent to ED. After being in ED for evaluation she developed symptoms concerning for TIA vs CVA. Please see compensation intern note above for further evaluation. General: Female appears stated age. NAD. CV: regular rate, regular rhythm, no murmurs Respiratory: CTA, no wheezing Extremities: no edema present. Moves all four equally. LLE strength testing 4/5 RLE strength testing 5/5 Abdomen: Soft-non tender, normoactive BS. Psych: A&O x3 Neuro: No focal deficits - Plan Date/Time: 06/18/191925 Austin Reed MD, have evaluated this patient and agree with findings/ plan as outlined by compensation intern resident. Pertinent changes/additions are listed here. 1. TIA vs CVA - CT brain showed chronic changes - MRI to be ordered in AM - Optimize medical management once results are known. 2. CKD Stage 4 - Currently at baseline - Recheck BMP 3. Hyperkalemia - 5.6 on admission - Consider Kayexalate vs. other measures to decrease - Recheck BMP PCP: RENATE CODE STATUS: DNI Disposition: Stable, will admit for further evaluation. Addendum - Attending - Attending Attestation Date/Time: 06/18/19 0420 I personally evaluated the patient and discussed the management with Dr. Webber/ Cristian. I agree with the History, Examination, Assessment and Plan documented above with any addition or exceptions noted below. Patient here after being seen by her GI doctor and having episode of AMS. Once here, she had onset of some LLE weakness and sensory change that was new. Head CT obtained that was negative. Patient with PMH DM, HTN. She was given ASA in the ER. Patient is being placed in obs status to stroke unit. Will obtain MRI in the AM due to this new neurologic deficit. TIA versus CVA as she is high risk for these conditions. Further mgmt and consults pending that result. Allow for permissive HTN overnight. Continue ASA therapy. May need therapy services depending on her deficit overnight and tomorrow.
[2019-06-18] MEDS ORDERED: Ketorolac Tromethamine 30 MG/ML VIAL ONE (21:19)
[2019-06-19 00:26] VITALS: BMI 25.2
[2019-06-19] MEDS ORDERED: Ondansetron PF 4 MG/2 ML Vial IVP PRN (00:59)
[2019-06-19] MEDS ORDERED: Ondansetron ODT 4 MG TAB PO PRN (00:59)
[2019-06-19] MEDS ORDERED: Acetaminophen 325 MG TAB PO PRN (00:59)
[2019-06-19] MEDS ORDERED: Heparin 5,000 UNITS/ML VIAL SC SCH (01:00)
[2019-06-19] MEDS: Lactated Ringer's 1,000 ML IV SCH ×3 (01:15→20:14)
[2019-06-19] MEDS ORDERED: Docusate 100 MG CAP PO PRN (02:52)
--- NOTE | 2019-06-19 05:21 | PDOC.FM ---
- Subjective Subjective: Patient doing well this morning. Reports continued abdominal pain from her gastroparesis, she is followed by GI. When discussing dehydration she states that she doesn't know how she got so dehydrated because she drinks 6-8 bottles of water every day. According to the night team she had told them she doesn't take much PO because of her gastroparesis. Reports that her symptoms are similar to how they were in the ED. - Objective Vital Signs & Weight: Vital Signs (12 hours) Temp Pulse Resp BP Pulse Ox 06/19/19 04:00 97.7 F 83 16 164/63 H 99 06/19/19 00:59 84 188/90 H 06/19/19 00:00 98.4 F 88 16 208/75 H 98 Weight Weight 64.495 kg Result Diagrams: 06/19/19 11:00 06/19/19 05:08 EKG Reviewed by me: Yes (sinus 80s) Phys Exam - Physical Examination Constitutional: NAD HEENT: sclera anicteric dry mucus membranes Neck: supple, full ROM Respiratory: no wheezing, clear to auscultation bilateral Cardiovascular: RRR systolic murmur Gastrointestinal: soft, non-tender Musculoskeletal: no edema, pulses present Neurological: moves all 4 limbs 4/5 LLE strength, foot strength intact; sensation intact throughout Psychiatric: normal affect, A&O x 3 Skin: normal turgor, cap refill <2 seconds Dx/Plan (1) CKD (chronic kidney disease) stage 4, GFR 15-29 ml/min Code(s): N18.4 - CHRONIC KIDNEY DISEASE, STAGE 4 (SEVERE) Status: Acute (2) Dehydration Code(s): E86.0 - DEHYDRATION Status: Acute (3) Hyperkalemia Code(s): E87.5 - HYPERKALEMIA Status: Acute (4) Hyponatremia Code(s): E87.1 - HYPO-OSMOLALITY AND HYPONATREMIA Status: Acute (5) TIA (transient ischemic attack) Code(s): G45.9 - TRANSIENT CEREBRAL ISCHEMIC ATTACK, UNSPECIFIED Status: Acute (6) UTI (urinary tract infection) Status: Acute (7) Gastroparesis Code(s): K31.84 - GASTROPARESIS Status: Chronic - Plan Plan: 78 y/o F with PMHx of CKD4, DM2, HTN, gastroparesis on Observation Stroke for TIA and Acute UTI. #TIA - CT head negative for acute hemorrhage - MRI today, f/u results - LLE weakness and paresthesia on presentation; sensation intact throughout this morning, LLE 4/5 strength, foot strength intact - systolic murmur appreciated on exam, echo ordered - carotid doppler ordered - Permissive HTN allowed, home htn held for now - total chol 181, trig 43, LDL 89, HDL 83 #UTI - Rocephin 1g Q24H started in ED, today is day 2 - IVF hydration - urine ccx shows >100k gram neg rods, sensitivities pending #Dehydration - IVF hydration #Hyperkalemia - K of 5.6 upon admission - K 5.0 today with fluids - Most likely secondary to dehydration #Hyponatremia - Sodium of 131 on admission - Sodium 135 today with fluids - Most likely hypovolemic hyponatremia secondary to dehydration #Hx of Gastroparesis - Most likely cause of pt's abdominal pain and dehydration - dietary consult today #Hx of CKD stage 4 - GFR 25>29 - Cr 2.26>2.03 #Hx of HTN - Permissive HTN allowed - hold home BP medications for now Diet: renal low protein diet DVT Ppx: SCD's Code Status: DNI Dispo: Stroke obs for MRI today, TIA workup including echo, and electrolyte monitoring Addendum - Attending - Attending Attestation Date/Time: 06/19/191930 I personally evaluated the patient and discussed the management with Dr. Villanueva. I agree with the History, Examination, Assessment and Plan documented above with any addition or exceptions noted below. The patient will have an MRI this morning to evaluate for stroke. Continue antibiotics for uti. Urine culture pending.
[2019-06-19 05:36] LABS: Anion Gap 20 mmol/L (10-20); BUN (Urea Nitrogen) 66 mg/dL (9.8-20.1); Calc. Creatinine Clearance 24 mL/min (70-130); Calcium 9.8 mg/dL (7.8-10.44); Carbon Dioxide 17 mmol/L (23-31); Cardiac Risk 2.2 (Less than 4.5); Chloride 103 mmol/L (98-107); Cholesterol 181 mg/dl (< 200 Desired); Estimated GFR-MDRD 29; Glucose 94 mg/dL (83-110); HDL Cholesterol 83 mg/dL (>60 Neg Risk); LDL Cholesterol, Calculated 89 mg/dL; Sodium 135 mmol/L (136-145); Triglycerides 43 mg/dL (Less than 150)
[2019-06-19] MEDS ORDERED: Lorazepam 0.5 MG TAB PO SCH (08:30)
[2019-06-19] MEDS: Metoclopramide HCl 10 MG TAB PO SCH ×4 (08:49→20:10)
[2019-06-19] MEDS: Aspirin Chewable 81 MG TAB PO SCH (08:49)
[2019-06-19] MEDS: Polyethylene Glycol 3350 17 GM Packet PO SCH (08:50)
[2019-06-19] MEDS: Heparin 5,000 UNITS/ML VIAL SC SCH ×3 (08:50→20:09)
[2019-06-19] MEDS ORDERED: Sucralfate 1 GM TAB PO PRN (09:00)
[2019-06-19] MEDS ORDERED: Non-Formulary Item 1 EACH (Linaclotide [Linzess] 290 MCG) PO SCH (09:00)
--- NOTE | 2019-06-19 09:52 | ULT ---
BILATERAL CAROTID DUPLEX ULTRASOUND: HISTORY: Altered mental status, left-sided weakness TECHNIQUE: Grayscale, color-flow and spectral Doppler ultrasound imaging of the extracranial carotid artery syst ems was performed bilaterally. FINDINGS: There Is plaque formation on both sides The peak systolic velocity in the right ICA measures 85 cm/s with an end-diastolic velocity of 17 cm/ s and a systolic ratio of 1.03. The peak systolic velocity in the left ICA measures 85 cm/s with an end-diastolic velocity of 12 cm/s and a systolic ratio of 1.00. Flow in both vertebral arteries remains antegrade. IMPRESSION: No evidence of hemodynamically significant stenosis in either ICA.
--- NOTE | 2019-06-19 11:06 | MRI ---
MRI BRAIN NONCONTRAST: DATE: 06/19/2019 HISTORY: 78-year-old female with altered mental status and left-sided weakness. TIA. FINDINGS: There is no obstructive hydrocephalus. There is no midline shift or any other evidence of mass effect . There is no extra-axial fluid collection. There is a moderate-severe degree of T2-hyperintensities in the cerebral white matter in the rhea, consistent with chronic ischemic white matter changes due to microvascular atherosclerosis. Tiny old lacunar infarctions in bilateral thalami and basal ganglia. There is no evidence of recent hemorrhage or restricted diffusion. A few s cattered tiny punctate foci of hemosiderin in the cerebral hemispheres bilaterally, rhea, and right cerebellar hemisphere, and one in the right basal ganglia, representing tiny remote hemorrhages. Thin elongated strip of hemosiderin in lateral aspect of left precentral gyrus representing remote hemorrhage. IMPRESSION: 1) moderate-severe chronic ischemic white matter changes. 2) multiple tiny old lacunar infarctions in corpus striatum and deep lacy nuclei. 3) several tiny punctate foci of old hemorrhages. Differential diagnosis is chronic hypertensive ence phalopathy versus amyloid angiopathy. 4) thin strip of remote hemorrhage in left lateral precentral gyrus. 5) no acute findings.
[2019-06-19 11:11] LABS: #Basophils 0.1 thou/uL (0.0-0.2); #Eosinphils 0.2 thou/uL (0.0-0.7); #Lymphocytes 2.1 thou/uL (1.20-3.40); #Monocytes 0.6 thou/uL (0.11-0.59); #Neutrophils 4.6 thou/uL (1.40-6.50); %Basophils 0.7 % (0.0-1.0); %Eosinophils 3.1 % (0.0-10.0); %Lymphocytes 27.2 % (21.0-51.0); %Monocytes 8.2 % (0.0-10.0); %Neutrophils 60.8 % (42.0-75.0); Hemoglobin 11.5 g/dL (12.0-16.0); Mean Corpuscular HGB CONC 32.9 g/dL (32.0-36.0); Mean Corpuscular Hemoglobin 29.1 pg (27.0-31.0); Mean Corpuscular Volume 88.5 fL (78.0-98.0); Platelet Count 283 thou/uL (130-400); RBC Distribution Width 12.6 % (11.5-14.5); Red Blood Cell (RBC) Count 3.93 mill/uL (4.20-5.40); White Blood Cell (WBC) Count 7.6 thou/uL (4.8-10.8)
[2019-06-19] MEDS ORDERED: cefTRIAXone\\ROCEPHIN 1 GM in Sodium Chloride 0.9% 100 ML IVPB SCH (20:00)
[2019-06-19] MEDS ORDERED: Atorvastatin Calcium 20 MG TAB PO SCH (21:00)
[2019-06-19] MEDS ORDERED: Carvedilol 3.125 MG TAB PO SCH (21:00)
[2019-06-19] MEDS ORDERED: Cyclobenzaprine 10 MG TAB PO SCH (21:00)
--- NOTE | 2019-06-20 05:05 | PDOC.FM ---
- Subjective Subjective: Patient doing well this morning. Reports that she feels as though her symptoms have improved. Agreeable to current plan of care. - Objective Vital Signs & Weight: Vital Signs (12 hours) Temp Pulse Resp BP Pulse Ox 06/20/19 03:34 98.5 F 79 16 158/84 H 99 06/19/19 23:24 98.4 F 86 16 156/75 H 98 06/19/19 20:00 98.8 F 82 16 152/81 H 99 Weight Admit Weight 64.495 kg Weight 66.678 kg I&O: 06/18/19 06/19/19 06/20/19 06:59 06:59 06:59 Intake Total 1050 Balance 1050 Result Diagrams: 06/19/19 11:00 06/20/19 07:44 Phys Exam - Physical Examination Constitutional: NAD HEENT: moist MMs, sclera anicteric Neck: supple, full ROM Respiratory: no wheezing, clear to auscultation bilateral Cardiovascular: RRR, no significant murmur Gastrointestinal: soft, non-tender Musculoskeletal: no edema, pulses present Strength 5/5 LLE bilaterally Neurological: normal sensation, moves all 4 limbs Sensation 5/5 LLE bilaterally Lymphatic: no nodes Psychiatric: normal affect, A&O x 3 Skin: normal turgor, cap refill <2 seconds Dx/Plan (1) CKD (chronic kidney disease) stage 4, GFR 15-29 ml/min Code(s): N18.4 - CHRONIC KIDNEY DISEASE, STAGE 4 (SEVERE) Status: Acute (2) Dehydration Code(s): E86.0 - DEHYDRATION Status: Acute (3) Hyperkalemia Code(s): E87.5 - HYPERKALEMIA Status: Acute (4) Hyponatremia Code(s): E87.1 - HYPO-OSMOLALITY AND HYPONATREMIA Status: Acute (5) TIA (transient ischemic attack) Code(s): G45.9 - TRANSIENT CEREBRAL ISCHEMIC ATTACK, UNSPECIFIED Status: Acute (6) UTI (urinary tract infection) Status: Acute (7) Gastroparesis Code(s): K31.84 - GASTROPARESIS Status: Chronic - Plan Plan: 78 y/o F with PMHx of CKD4, DM2, HTN, gastroparesis on Observation Stroke for TIA and Acute UTI. #TIA - CT head negative for acute hemorrhage - MRI today: chronic changes - LLE weakness and paresthesia on presentation; greatly improved with intact strength and sensation LLE bilaterally - systolic murmur appreciated on exam, echo ordered - carotid doppler: no stenotic changes - Restarted home carvedilol and amlodipine 06/19, will watch BP today - total chol 181, trig 43, LDL 89, HDL 83 #UTI - Rocephin 1g Q24H started in ED, today is day 3 - IVF hydration - urine ccx shows >100k klebsiella pneumonia, talamantes-sensitive #Dehydration - IVF hydration #Hyperkalemia - K of 5.6 upon admission - K 5.0 06/19 with fluids - Most likely secondary to dehydration #Hyponatremia - Sodium of 131 on admission - Sodium 135 06/19 with fluids - Most likely hypovolemic hyponatremia secondary to dehydration #Hx of Gastroparesis - Most likely cause of pt's abdominal pain and dehydration - dietary consult: add zuri nunez #Hx of CKD stage 4 - GFR 25>29 - Cr 2.26>2.03 #Hx of HTN - restarted home amlodipine and carvedilol - watching BPs today Diet: renal low protein diet DVT Ppx: SCD's Code Status: DNI Dispo: Stroke obs for echo today, monitoring BP, likely d/c later today Addendum - Attending - Attending Attestation Date/Time: 06/20/19 7969 I personally evaluated the patient and discussed the management with Dr. Villanueva. I agree with the History, Examination, Assessment and Plan documented above with any addition or exceptions noted below. MRI shows chronic ischemic changes. Creatinine near baseline. Pt will d/c back to [facility] after echo is taken.
[2019-06-20] MEDS: Lactated Ringer's 1,000 ML IV SCH (05:52)
[2019-06-20 08:29] LABS: Anion Gap 14 mmol/L (10-20); BUN (Urea Nitrogen) 60 mg/dL (9.8-20.1); Calc. Creatinine Clearance 20 mL/min (70-130); Calcium 9.5 mg/dL (7.8-10.44); Carbon Dioxide 22 mmol/L (23-31); Chloride 108 mmol/L (98-107); Estimated GFR-MDRD 23; Glucose 82 mg/dL (83-110); Potassium 5.4 mmol/L (3.5-5.1); Sodium 139 mmol/L (136-145)
[2019-06-20] MEDS ORDERED: Carvedilol 6.25 MG TAB PO SCH (09:00)
[2019-06-20] MEDS ORDERED: Amlodipine 10 MG TAB PO SCH (09:00)
[2019-06-20] MEDS: Metoclopramide HCl 10 MG TAB PO SCH ×2 (09:45→13:54)
[2019-06-20] MEDS: Polyethylene Glycol 3350 17 GM Packet PO SCH (09:45)
[2019-06-20] MEDS: Aspirin Chewable 81 MG TAB PO SCH (09:46)
[2019-06-20] MEDS: Heparin 5,000 UNITS/ML VIAL SC SCH ×2 (09:46→13:54)
[2019-06-20 15:36] VITALS: BP 153/75; TEMP 98.7
--- NOTE | 2019-06-21 17:37 | DIS ---
DATE OF ADMISSION: 06/19/2019 DATE OF DISCHARGE: 06/20/2019 ADMITTING RESIDENT: Tracey Webber DO ADMITTING ATTENDING: Patrick Melendez MD DISCHARGE RESIDENT: Marlene Villanueva MD DISCHARGE ATTENDING: MD Julee CONSULTS: Case Management, diet, PT, OT. PROCEDURES: None. IMAGING: Brain CT: Diffuse cortical atrophy, chronic ischemic vessel disease. Chronic changes. Brain MRI: Piinduoo-si-rtctza chronic ischemic white matter changes, multiple tiny old lacunar infarcts in corpus striatum and deep lacy nuclei, several tiny punctate foci of old hemorrhages, a thin strip of remote hemorrhage in left lateral precentral gyrus. Carotid Doppler study: No signs of DVT. Echo: EF 60% to 65%, moderate concentric LVH, moderate annular calcification, aortic valve calcified, but not stenotic, mild tricuspid regurgitation, normal pulmonary artery pressure. Left and right atrium are normal in size. PRIMARY DIAGNOSES: 1. Transient ischemic attack. 2. Urinary tract infection. 3. Dehydration. 4. Hyperkalemia. 5. Hyponatremia. SECONDARY DIAGNOSES: 1. Gastroparesis. 2. Chronic kidney disease, 4. 3. Hypertension. DISCHARGE MEDICATIONS: 1. Amlodipine 10 mg p.o. daily. 2. Aspirin 81 mg p.o. daily. 3. Atorvastatin 20 mg p.o. at bedtime. 4. Carvedilol 3.125 mg p.o. at bedtime. 5. Carvedilol 6.25 mg p.o. daily. 6. Cefdinir 300 mg p.o. daily x5 days. 7. Cyclobenzaprine 10 mg p.o. at bedtime. 8. Docusate 100 mg p.o. daily p.r.n. 9. Ferrous sulfate 325 mg p.o. b.i.d. 10. Linzess 290 mcg p.o. daily. 11. Metoclopramide 5 mg p.o. q.i.d. 12. Omeprazole 40 mg p.o. daily. 13. Sucralfate 1 g p.o. daily. 14. Glipizide 2.5 mg p.o. daily. Discontinued medications: 1. Ceftriaxone. 2. Heparin. 3. Lactated Ringer's. 4. MiraLAX. HISTORY OF PRESENT ILLNESS/HOSPITAL COURSE: The patient was sent to the ED by her GI doctor after slumping down in the chair at their office. While in the ED, she began to have left lower extremity weakness and paresthesias, and she was admitted to stroke obs for TIA workup. Her imaging results as above. She was also found to have a new heart murmur and an echo was ordered, results above. In the ED, she was also found to have a UTI and was started on Rocephin. The UTI was cultured and came back Klebsiella pneumoniae, pansensitive, so the patient was discharged on a 5-day course of cefdinir. She was found to have a sodium of 131 and a potassium of 5.6 on admission, that improved with fluids. The dietitian saw her and recommended Suplena daily. The PT saw patient and [facility] 1 [facility] 2 [facility]. By discharge, the patient had regained her left lower extremity strength and denied paresthesias. DISPOSITION: Stable. DISCHARGE INSTRUCTIONS: 1. Location: [facility]. 2. Diet: Renal diet. 3. Activity: As tolerated. 4. Followup: Follow up within 7 days with PCP. The patient will need PT 1 [facility] 2 [facility]. The patient will need to continue her cefdinir antibiotic for UTI as outpatient. Job ID: [id number] [email or web address]
--- NOTE | 2019-06-27 13:10 | EKG ---
Test Reason : Blood Pressure : / mmHG Vent. Rate : 070 BPM Atrial Rate : 070 BPM P-R Int : 150 ms QRS Dur : 074 ms QT Int : 382 ms P-R-T Axes : 035 -06 027 degrees QTc Int : 412 ms Normal sinus rhythm Inferior infarct , age undetermined Anteroseptal infarct , age undetermined Abnormal ECG Confirmed by MIN BUSTILLO ([id number]), managing editor KAMALA HADDAD ([id number]) on 06/27/2019 1:10:41 PM Referred By: Confirmed By:MIN BUSTILLO
== END 2019-06-20 16:31 ==
LOC: ERS 14:11 → 2SE 06-19 00:02
PROVIDERS: ADMIT Student in an Organized Health Care Education/Training Program; ATTEND Student in an Organized Health Care Education/Training Program
DX: G45.9 Transient cerebral ischemic attack, unspecified (principal); N39.0 Urinary tract infection, site not specified; B96.1 Klebsiella pneumoniae [K. pneumoniae] as the cause of diseases classified elsewhere; E86.0 Dehydration; E87.5 Hyperkalemia; E87.1 Hypo-osmolality and hyponatremia; I12.9 Hypertensive chronic kidney disease with stage 1 through stage 4 chronic kidney disease, or unspecified chronic kidney disease; E11.22 Type 2 diabetes mellitus with diabetic chronic kidney disease; N18.4 Chronic kidney disease, stage 4 (severe); E11.43 Type 2 diabetes mellitus with diabetic autonomic (poly)neuropathy; K31.84 Gastroparesis; Z66 Do not resuscitate; Z79.82 Long term (current) use of aspirin; Z79.84 Long term (current) use of oral hypoglycemic drugs; Z79.899 Other long term (current) drug therapy
CPT/HCPCS: 70450; 70551; 80048 ×2; 80053; 80061; 82962 ×2; 83690; 84484; 85025; 87077; 87086; 87186; 93005; 93306 ×2; 93880; 96361 ×2; 96365; 96372 ×2; 96375; 97116 ×2; 97139; 97530; 99285; G0378 ×3; 36415; 36416; 81003; 81015; J0696; J1644; J1885; J3490; J8597

== ENCOUNTER 2020-04-27 09:56 | Outpatient (CLI) | payer MEDICARE, MEDICAID, OTHER ==
[2020-04-28 13:25] LABS: SARS-CoV-2 MS2 Positive; SARS-CoV-2 N Gene Negative; SARS-CoV-2 S Gene Negative; SARS-CoV-2 orf1ab Negative
== END 2020-04-27 09:57 | disposition home or self-care (01) ==
LOC: LABSCS 09:56
PROVIDERS: ATTEND Urology
DX: Z20.828 Contact with and (suspected) exposure to other viral communicable diseases (principal)
CPT/HCPCS: 87635; U0003

== ENCOUNTER 2022-11-10 12:29 | Emergency (ER) | payer MEDICARE, OTHER ==
[2022-11-10] MEDS ORDERED: Acetaminophen 500 MG TAB ONE (12:42)
[2022-11-10 13:12] LABS: #Basophils 0.1 thou/uL (0.0-0.2); #Eosinphils 0.1 thou/uL (0.0-0.7); #Lymphocytes 1.9 thou/uL (1.20-3.40); #Monocytes 0.3 thou/uL (0.11-0.59); #Neutrophils 4.2 thou/uL (1.40-6.50); %Basophils 0.9 % (0.0-1.0); %Eosinophils 1.9 % (0.0-10.0); %Lymphocytes 29.2 % (21.0-51.0); %Monocytes 5.2 % (0.0-10.0); %Neutrophils 62.9 % (42.0-75.0); Hemoglobin 13.1 g/dL (12.0-16.0); Mean Corpuscular Hemoglobin 31.7 pg (27.0-31.0); Mean Corpuscular Volume 96.3 fl (78.0-98.0); Mean Platelet Volume 8.2 fL (7.4-10.4); Platelet Count 206 10x3/uL (130-400); RBC Distribution Width 13.9 % (11.5-14.5); Red Blood Cell (RBC) Count 4.12 mill/uL (4.20-5.40); White Blood Cell (WBC) Count 6.7 10x3/uL (4.8-10.8)
[2022-11-10 13:41] LABS: ALT (SGPT) 8 U/L (8-55); AST (SGOT) 12 U/L (5-34); Albumin 3.9 g/dL (3.4-4.8); Alkaline Phosphatase 104 U/L (40-110); Anion Gap 21 mmol/L (10-20); BUN (Urea Nitrogen) 109 mg/dL (9.8-20.1); Bilirubin, Total 0.5 mg/dL (0.2-1.2); Calc. Creatinine Clearance 0 mL/min (70-130); Calcium 10.3 mg/dL (7.8-10.44); Carbon Dioxide 19 mmol/L (23-31); Chloride 104 mmol/L (98-107); Estimated GFR 3; Globulin 3.6 g/dL (2.4-3.5); Glucose 147 mg/dL (83-110); Potassium 5.8 mmol/L (3.5-5.1); Protein, Total 7.5 g/dL (5.8-8.1); Sodium 138 mmol/L (136-145)
[2022-11-10] MEDS ORDERED: Morphine 2 MG/ML VIAL ONE (15:20)
[2022-11-10] MEDS ORDERED: Iopamidol-370 76% 500 ML 1 ML ONE (15:44)
== END 2022-11-10 17:54 ==
LOC: ERS 12:29
DX: E87.5 Hyperkalemia (principal); E11.9 Type 2 diabetes mellitus without complications; E78.5 Hyperlipidemia, unspecified; I13.2 Hypertensive heart and chronic kidney disease with heart failure and with stage 5 chronic kidney disease, or end stage renal disease; N18.6 End stage renal disease; I50.9 Heart failure, unspecified; Z99.2 Dependence on renal dialysis
CPT/HCPCS: 36415; 71045; 74176; 74177; 80053; 85025; 93005; 96374; J2272; Q9967